=== PATIENT | male | born 1965 | race Caucasian/White ===

== ENCOUNTER 2020-10-22 08:53 | Outpatient (REF) | payer OTHER, SELFPAY ==
[2020-10-22 09:56] LABS: COVID-19 Test Negative (Negative)
== END 2020-10-22 08:54 | disposition home or self-care (01) ==
LOC: HO.EMPCOV 08:53
PROVIDERS: PCP Internal Medicine; Visit Provider Internal Medicine
DX: Z20.828 Contact with and (suspected) exposure to other viral communicable diseases (principal)
CPT/HCPCS: 87635; C9803

== ENCOUNTER 2020-10-26 10:48 | Outpatient (REF) | payer SELFPAY ==
[2020-10-26 11:47] LABS: Cholesterol 226 mg/dL
[2020-10-26 12:22] LABS: SARS COV2 IgG Negative (Negative)
== END 2020-10-26 10:49 | disposition home or self-care (01) ==
LOC: HO.LNC 10:48
PROVIDERS: Visit Provider Pathology Anatomic Pathology & Clinical Pathology
DX: Z13.89 Encounter for screening for other disorder (principal)
CPT/HCPCS: 82465; 86769

== ENCOUNTER 2020-12-05 08:19 | Outpatient (REF) | payer OTHER, SELFPAY ==
[2020-12-05 09:34] LABS: Anion Gap 13 (12-20); Blood Urea Nitrogen 15 mg/dL (9-16); Calcium 9.4 mg/dL (8.4-10.2); Carbon Dioxide 26 mmol/L (22-29); Chloride 104 mmol/L (96-108); Cholesterol 244 mg/dL; Estimated Glomerular Filt Rate > 60; Glucose Fasting 116 mg/dL (60-99); HDL Cholesterol 63 mg/dL; LDL Cholesterol Calculated 163 mg/dl; Potassium 4.5 mmol/l (3.3-5.1); Sodium 138 mmol/L (135-145); Triglycerides 94 mg/dL
[2020-12-05 10:06] LABS: PSA,Total (Free>4and<10) 8.01 ng/mL (0.00-4.00)
[2020-12-06 11:22] LABS: Free Prostate Spec Ag 0.9 ng/mL; Percent Free Prostate Spec Ag 13 % (calc) (>25)
== END 2020-12-05 08:20 | disposition home or self-care (01) ==
LOC: HO.LAB 08:19
PROVIDERS: PCP Internal Medicine; Visit Provider Internal Medicine
DX: Z00.00 Encounter for general adult medical examination without abnormal findings (principal); I10 Essential (primary) hypertension; N40.0 Benign prostatic hyperplasia without lower urinary tract symptoms; Z12.5 Encounter for screening for malignant neoplasm of prostate
CPT/HCPCS: 36415; 80048; 80061; 84153; 84154

== ENCOUNTER → 2021-01-08 11:29 | Outpatient (BNVA) | payer OTHER, SELFPAY | PROVIDERS: PCP Internal Medicine; Visit Provider Urology ==

== ENCOUNTER 2021-01-23 08:44 | Outpatient (REF) | payer OTHER, SELFPAY ==
[2021-01-23 10:11] LABS: Blood Urea Nitrogen 14 mg/dL (9-16); Estimated Glomerular Filt Rate > 60
== END 2021-01-23 08:45 | disposition home or self-care (01) ==
LOC: HO.LAB 08:44
PROVIDERS: PCP Internal Medicine; Visit Provider Urology
DX: N26.1 Atrophy of kidney (terminal) (principal); R97.20 Elevated prostate specific antigen [PSA]
CPT/HCPCS: 36415; 82565; 84520

== ENCOUNTER → 2021-01-28 08:41 | Outpatient (BNVA) | payer OTHER, SELFPAY | PROVIDERS: PCP Internal Medicine; Visit Provider Physician Assistant | DX: Z13.89 Encounter for screening for other disorder (principal) | CPT/HCPCS: 12002; 99203 ==

== ENCOUNTER → 2021-01-30 10:58 | Outpatient (BNVA) | payer OTHER, SELFPAY | PROVIDERS: PCP Internal Medicine; Visit Provider Physician Assistant | DX: Z13.89 Encounter for screening for other disorder (principal) | CPT/HCPCS: 99213 ==

== ENCOUNTER → 2021-02-04 11:02 | Outpatient (BNVA) | payer OTHER, SELFPAY | PROVIDERS: PCP Internal Medicine; Visit Provider Physician Assistant | DX: Z13.89 Encounter for screening for other disorder (principal) | CPT/HCPCS: 99213 ==

== ENCOUNTER → 2021-02-05 08:36 | Outpatient (BNVA) | payer OTHER, SELFPAY | PROVIDERS: PCP Internal Medicine; Visit Provider Urology ==

== ENCOUNTER 2021-02-10 09:34 | Emergency (ER) | payer OTHER, SELFPAY ==
[2021-02-10 09:39] VITALS: BP 140/88; PULSE 86; RESP 18; TEMP 37; O2SAT 100; BMI 24.0
--- NOTE | 2021-02-10 10:22 | ED.WOUNDLAC ---
HPI - Wound/Laceration General Chief Complaint: Wound/Laceration Stated Complaint: R THUMB LAC Time Seen by Provider: 02/10/21 10:22 History of Present Illness HPI narrative: Patient complains of right thumb laceration when he was cutting some vegetables, no numbness no weakness no tingling no other injury Related Data Home Medications Medication Instructions Recorded Confirmed diazepam 5 mg tablet 5 mg PO TID PRN 01/08/21 escitalopram oxalate 10 mg tablet 10 mg PO DAILY 01/08/21 lisinopril 10 mg tablet 10 mg PO DAILY 01/08/21 Previous Rx's Medication Instructions Recorded finasteride 5 mg tablet 5 mg PO DAILY 90 Days #90 tab 02/05/21 Allergies Allergy/AdvReac Type Severity Reaction Status Date / Time No Known Allergies Allergy Unverified 01/08/21 11:48 [No Known Allergies*] Review of Systems Review of Systems: Positive for right thumb laceration negatives are no dizziness no weakness no numbness no tingling no joint pain PMFSH Past Medical History Source: nursing notes reviewed Medical History (Updated 02/10/21 @ 10:25 by MARION Green) No known health problems Social History Social History Advance Directives: No Advance Directives Information Provided: No Physical Exam Vital Signs: Vital Signs: Last Vital Signs Temp 98.6 F 02/10/21 09:39 Pulse 86 02/10/21 09:39 Resp 18 02/10/21 09:39 BP 140/88 H 02/10/21 09:39 Pulse Ox 100 02/10/21 09:39 Body Mass Index 24.0 General appearance comfortable relax cooperative no acute distress Neck is supple Respiratory no distress Right thumb distal phalanx has a 1 cm flap laceration that is not bleeding, all tendon function is normal sensation motor and vascular or all intact distal Course Course Course Narrative: Right thumb laceration flap lack 1 cm is cleansed and irrigated with normal saline and then closed with Steri-Strips, bleeding controlled, no complications Discharge Plan Discharge Clinical Impression: Laceration of right thumb Qualifiers: Encounter type: initial encounter Damage to nail status: without damage Foreign body presence: without foreign body Qualified Code(s): S61.011A - Laceration without foreign body of right thumb without damage to nail, initial encounter Patient Disposition: Home, Self-Care Additional Instructions: Removed tape in 5-7 days Return any time any time for redness swelling discharge from wound, any sign of infection Prescriptions: No Action escitalopram oxalate 10 mg tablet 10 mg PO DAILY RF: 0 diazepam 5 mg tablet 5 mg PO TID PRN (Reason: muscle spasm) RF: 0 lisinopril 10 mg tablet 10 mg PO DAILY RF: 0 finasteride 5 mg tablet 5 mg PO DAILY 90 Days Qty: 90 RF: 1
== END 2021-02-10 10:36 | disposition home or self-care (01) ==
PROVIDERS: Emergency Provider Emergency Medicine; PCP General Practice
DX: S61.011A Laceration without foreign body of right thumb without damage to nail, initial encounter (principal); W26.0XXA Contact with knife, initial encounter; Y93.G1 Activity, food preparation and clean up; Y92.010 Kitchen of single-family (private) house as the place of occurrence of the external cause; Y99.9 Unspecified external cause status
CPT/HCPCS: 99283

== ENCOUNTER → 2021-05-08 11:02 | Outpatient (REF) | payer OTHER, SELFPAY ==
--- NOTE | 2021-05-08 11:09 | CA_ITS ---
Acquisition Time: 2021-05-08 11:20:42 Total Exercise Time: 00:11:01 Test Indications: SYNCOPE Medications: SEE CHART Protocol: ELIEZER Max HR: 162 BPM 98% of Pred: 164 BPM Max BP: 192/070 mmHG Max Work Load: 13.4 METS Exercise stress test with exercise 11 min 1 sec of Eliezer protocol, without anginal symptoms, with isolated PACs, with normotensive response to exercise, without EKG changes meeting criteria for ischemia. In recovery there was asymptomatic borderline horizontal ST depression inferiorly, V5-V6 noted. Echo images obtained by [email or web address] at rest and immediately post peak exercise. Definity contrast used. Note: when transferring from treadmill to stretcher at end of peak exercise a cardiac lead was accidently disconnected, then reconnected by 34 sec of recovery. Test reviewed with Dr Thompson Referred By: Daniel Umanzor Overread By: BIJAN BERGER
== END ==
LOC: HO.CARD 11:02
PROVIDERS: PCP Internal Medicine; Visit Provider Internal Medicine
DX: R55 Syncope and collapse (principal); R07.89 Other chest pain
CPT/HCPCS: 93350; Q9957

== ENCOUNTER 2021-06-06 06:07 | Outpatient (REF) | payer OTHER, SELFPAY ==
[2021-06-06 07:58] LABS: PSA,Total (Free>4and<10) 7.65 ng/mL (0.00-4.00)
[2021-06-07 12:01] LABS: Free Prostate Spec Ag 0.5 ng/mL; Percent Free Prostate Spec Ag 7 % (calc) (>25)
== END 2021-06-06 06:08 | disposition home or self-care (01) ==
LOC: HO.LAB 06:07
PROVIDERS: PCP Internal Medicine; Visit Provider Urology
DX: Z12.5 Encounter for screening for malignant neoplasm of prostate (principal); N13.8 Other obstructive and reflux uropathy; N40.1 Benign prostatic hyperplasia with lower urinary tract symptoms
CPT/HCPCS: 36415; 84153; 84154

== ENCOUNTER → 2021-06-07 08:43 | Outpatient (BNVA) | payer OTHER, SELFPAY | PROVIDERS: PCP Internal Medicine; Visit Provider Urology | DX: N40.1 Benign prostatic hyperplasia with lower urinary tract symptoms (principal); N13.8 Other obstructive and reflux uropathy; R97.20 Elevated prostate specific antigen [PSA] | CPT/HCPCS: 51798; 99212 ==

== ENCOUNTER 2021-12-10 08:34 | Outpatient (REF) | payer OTHER, SELFPAY ==
[2021-12-10 09:53] LABS: PSA,Total (Free>4and<10) 7.93 ng/mL (0.00-4.00)
[2021-12-11 13:16] LABS: Free Prostate Spec Ag 0.6 ng/mL; Percent Free Prostate Spec Ag 9 % (calc) (>25); Prostate Specific Ag Total 6.9 ng/mL (< OR = 4.0)
== END 2021-12-10 08:35 | disposition home or self-care (01) ==
LOC: HO.LAB 08:34
PROVIDERS: Visit Provider Urology
DX: N40.1 Benign prostatic hyperplasia with lower urinary tract symptoms (principal); N13.8 Other obstructive and reflux uropathy; R97.20 Elevated prostate specific antigen [PSA]; Z12.5 Encounter for screening for malignant neoplasm of prostate
CPT/HCPCS: 36415; 84153; 84154

== ENCOUNTER → 2021-12-13 08:47 | Outpatient (BNVA) | payer OTHER, SELFPAY | PROVIDERS: PCP Internal Medicine; Visit Provider Urology ==

== ENCOUNTER 2022-06-16 07:16 | Outpatient (REF) | payer BC, SELFPAY ==
[2022-06-16 08:47] LABS: PSA,Total (Free>4and<10) 11.06 ng/mL (0.00-4.00)
== END 2022-06-16 07:17 | disposition home or self-care (01) ==
LOC: HO.LAB 07:16
PROVIDERS: PCP Internal Medicine; Visit Provider Urology
DX: Z12.5 Encounter for screening for malignant neoplasm of prostate (principal); N13.8 Other obstructive and reflux uropathy; N40.1 Benign prostatic hyperplasia with lower urinary tract symptoms; R97.20 Elevated prostate specific antigen [PSA]
CPT/HCPCS: 36415; 84153

== ENCOUNTER 2022-06-18 07:14 | Outpatient (REF) | payer BC, SELFPAY ==
[2022-06-18 08:01] LABS: Hematocrit 44.9 % (42.0-52.0); Hemoglobin 14.5 g/dl (14.0-18.0); Mean Corpuscular HGB Conc 32.3 g/dl (31.0-36.0); Mean Corpuscular Hemoglobin 28.3 pg (27.0-33.0); Mean Corpuscular Volume 87.7 fL (80.0-98.0); Mean Platelet Volume 8.8 fL (9.4-12.4); Platelet Count 385 X10*3/uL (160-400); Red Blood Count 5.12 X10*6/uL (4.60-5.80); Red Cell Distribution Width 16.9 % (11.0-16.0); White Blood Count 8.8 X10*3/uL (4.8-10.8)
[2022-06-18 08:50] LABS: Alanine Aminotransferase 14 U/L (0-40); Albumin Level 4.5 g/dL (3.5-5.0); Alkaline Phosphatase 90 U/L (39-117); Anion Gap 13 (12-20); Aspartate Amino Transferase 17 U/L (5-37); Bilirubin Total 0.3 mg/dL (0.0-1.0); Blood Urea Nitrogen 13 mg/dL (9-16); Calcium 9.3 mg/dL (8.4-10.2); Carbon Dioxide 25 mmol/L (22-29); Chloride 104 mmol/L (96-108); Cholesterol 260 mg/dL; Estimated Glomerular Filt Rate > 60; Glucose Random 119 mg/dL (60-115); HDL Cholesterol 62 mg/dL; LDL Cholesterol Calculated 176 mg/dl; Potassium 4.4 mmol/L (3.3-5.1); Sodium 138 mmol/L (135-145); Total Protein 7.5 g/dL (6.5-8.0); Triglycerides 111 mg/dL
[2022-06-18 10:45] LABS: Appearance Urine HAZY; Color Urine YELLOW; Glucose Urine UA NEG (NEG); Leukocyte Esterase Urine NEG (NEG); Nitrite Urine NEG (NEG); PH 6.5 (5.0-8.0); Specific Gravity - Urine 1.025 (1.005-1.025); Urine Blood 2+ (NEG); Urine Ketones NEG (NEG); Urine Protein NEG (NEG-TRACE)
[2022-06-18 11:03] LABS: Mucus Urine 2+ /LPF; Squamous Epithelial Cell Urine TRACE /LPF
[2022-06-18 11:04] LABS: WBC Urine 0 /HPF (0-4)
== END 2022-06-18 07:15 | disposition home or self-care (01) ==
LOC: HO.LAB 07:14
PROVIDERS: PCP Internal Medicine; Visit Provider Internal Medicine
DX: Z00.00 Encounter for general adult medical examination without abnormal findings (principal); I10 Essential (primary) hypertension
CPT/HCPCS: 36415; 80053; 80061; 81001; 85027

== ENCOUNTER 2022-10-28 07:37 | Outpatient (REF) | payer BC, SELFPAY ==
[2022-10-28 07:55] VITALS: BP 167/87; PULSE 67; RESP 16; TEMP 36.9; O2SAT 100
[2022-10-28 07:57] VITALS: BMI 22.8
--- NOTE | 2022-10-28 08:29 | W.PM.OPN ---
Operative Note Operative Note Date of Service: 10/28/22 Narrative: Preoperative diagnosis: Elevated PSA Postoperative diagnosis: Elevated PSA Procedure: 1. transrectal ultrasound measurement of prostate 2. transrectal ultrasound-guided pudendal nerve block 3. transrectal ultrasound-guided prostate biopsy 12 core Surgeon: Dr. Fredrick Daly Anesthetic: Local Indications for procedure: Elevated PSA 11.1 - prior negative biopsy Procedure: After informed consent was verified, the patient was brought into the procedure area and lay left-hand side down on the table. Patient identity confirmed. Perioperative antibiotics confirmed. Safety pause time out performed. SAMUEL performed to dilate rectal sphincter Iodine 10cc with Gel was placed per rectum Ultrasound probe was placed per rectum The prostate was measured in 3 dimensions Total volume equals 30 gm right base small cystic structures were noted left medial base calcifications were noted at the surgical margin The prostate was otherwise homogeneous in nature An ultrasound-guided pudendal nerve block was performed using 10 cc of 1% lidocaine. 8 cc was placed at the base and 2 cc of the apex. A 12 core biopsy was performed with 6 cores each side. Two cores were taken at the apex, mid and base. Cores were spaced between lateral and medial. He tolerated the procedure well. Was able to ambulate to bathroom after 5 minutes. Printed instructions regarding antibiotic use and common side effects such as low-grade temperature, potential infection and bleeding were given Pathology: 12 core prostate biopsy.
[2022-10-28 08:30] VITALS: BP 145/92; PULSE 65; RESP 16; O2SAT 99
== END 2022-10-28 07:38 | disposition home or self-care (01) ==
LOC: HO.MS 07:37
PROVIDERS: PCP Internal Medicine; Visit Provider Urology
PROC: (CPT 55700; principal; 2022-10-28 08:00)
DX: N42.32 Atypical small acinar proliferation of prostate (principal); R97.20 Elevated prostate specific antigen [PSA]
CPT/HCPCS: 55700; 76942; 88305; 88344

== ENCOUNTER 2023-05-18 08:05 | Outpatient (REF) | payer BC, SELFPAY ==
[2023-05-18 09:19] LABS: Appearance Urine Clear; Color Urine Yellow; Glucose Urine UA Negative (Negative); Leukocyte Esterase Urine Negative (Negative); Nitrite Urine Negative (Negative); UMIC TRIGGER UA YES; Urine Blood Small (1+) (Negative); Urine Ketones Negative (Negative); Urine Protein Negative (Neg-Trace)
[2023-05-18 09:26] LABS: Bacteria Urine None Seen (None Seen); Hyaline Casts Urine 0-2 /LPF (0-2); RBC Urine >20 /HPF (0-2); Squamous Epithelial Cell Urine 0-2 /HPF (0-2); WBC Urine 0-5 /HPF (0-5)
[2023-05-18 10:05] LABS: Cholesterol 230 mg/dL; HDL Cholesterol 60 mg/dL; LDL Cholesterol Calculated 157 mg/dl; Triglycerides 68 mg/dL
[2023-05-18 10:26] LABS: Prostate Specific Antigen 13.41 ng/mL (<0.05-4.0)
== END 2023-05-18 08:06 | disposition home or self-care (01) ==
LOC: HO.LAB 08:05
PROVIDERS: Internal Medicine; PCP Urology; Visit Provider Urology
DX: Z12.5 Encounter for screening for malignant neoplasm of prostate (principal); R97.20 Elevated prostate specific antigen [PSA]; E78.5 Hyperlipidemia, unspecified; R31.21 Asymptomatic microscopic hematuria
CPT/HCPCS: 36415; 80061; 81001; 84153

== ENCOUNTER 2023-05-20 11:44 | Outpatient (AMB) | payer BC, SELFPAY ==
--- NOTE | 2023-05-20 11:56 | A.OFFVIS_ITS ---
Intake Intake Visit Reasons: 6M PSA(set) Intake Note: * Patient presents today for a 6mo follow-up with PSA results * Meds- Finasteride * Allergies to Antibiotic- None * Blood Thinner- None Matchbook Assembler Required: No Accompanied by: Self / Same As Patient Allergies No Known Allergies [No Known Allergies*] Allergy (Verified 05/20/23 11:56) HPI HPI Comments History of Present Illness Details Rishi is a very pleasant male. He is a patient of Dr. Eliazar gibbs. He is seen for the following urologic conditions - elevated PSA - BPH PSA remains elevated 6 month follow-up Elevated PSA Prior PSA 12/12 5.4, 06/11 7.2, 12/13 8.0, 06/12 7.6, 12/14 6.9 9%, 06/13 11, 05/15 13 Prior prostate biopsy May 2020 prostate biopsy negative - BPH with chronic inflammation Repeat biopsy - 11/13 BPH with small area TUCKER Imaging - 01/13 MRI no suspicious lesions 30 g prostate PFSH Medical History Anemia Colon cancer screening Hemorrhoids Internal and external bleeding hemorrhoids No known health problems Palmar nodule Surgical History History of surgery Review of Systems Const Denies chills and Denies fever(s) Card Reports no additional complaints and Denies syncope Resp Denies cough GI Denies abdominal pain and Denies heartburn Reports as per HPI and Denies change in libido Neuro Denies syncope Psych Denies change in libido Endo Denies change in libido Physical Exam Const General: cooperative, healthy appearing, comfortable and no acute distress Orientation/consciousness: patient oriented x3 HEENT Face and sinus: Yes normal facial exam Mouth: moist mucous membranes Neck Neck: Yes normal visual inspection, Yes full ROM and Yes trachea midline Chest Chest palpation & inspection: normal inspection of the chest Resp Effort & Inspection: normal respiratory effort, able to speak in complete sentences and no respiratory distress GI Inspection: Yes normal to inspection Back/Spine/Pelvis Cervical Spine: normal cervical lordosis Thoracic/Lumbar Spine: thoracic and lumbar spine normal to inspection Skin General skin exam: no rashes or lesions noted Neuro General: patient oriented x3, gait normal, tone normal and moves all extremities Extrem General: Yes normal to inspection and Yes capillary refill normal Assessment & Plan Assessment & Plan (1) BPH w urinary obs/LUTS: Code(s): N40.1 - Benign prostatic hyperplasia with lower urinary tract symptoms; N13.8 - Other obstructive and reflux uropathy (2) Elevated PSA: Comment: May 2020 Neg Biopsy Code(s): R97.20 - Elevated prostate specific antigen [PSA] Plan Six month follow-up Orders: Orders Prostate Specific Antigen 6 Months R97.20 - Elevated prostate specific antigen [PSA] Patient Instructions: Imaging studies, laboratory and physical exam results were discussed and reviewed in detail. No major barriers to patient understanding were identified. An opportunity to ask questions regarding the treatment plan was provided. All questions were answered. The patient expressed understanding and agreement with the above treatment plan. The patient is aware they should contact our office by phone for worsening of their current condition or the appearance of new urologic symptoms. Compliance is encouraged with any medications and followup testing that is ordered. It is a privilege to participate in the urologic care of your patient. If you have any questions or concerns regarding treatment for the above conditions, or other urologic issues, please do not hesitate to contact me. The office telephone contact is [phone]. This note is constructed using voice recognition software. While every effort has been made to ensure accuracy mirror polisher errors may have been included. Yours sincerely, Dr Fredrick Daly MD, [facility] - Urology Providers of Expert, Compassionate Care for the Genitourinary System Coding Level of Care Code Est Pt Level 3 (29172) Diagnoses BPH w urinary obs/LUTS N40.1; N13.8 Elevated PSA R97.20
== END 2023-05-20 12:18 | disposition home or self-care (01) ==
PROVIDERS: PCP Urology; Visit Provider Urology
DX: N40.1 Benign prostatic hyperplasia with lower urinary tract symptoms (principal); N13.8 Other obstructive and reflux uropathy; R97.20 Elevated prostate specific antigen [PSA]
CPT/HCPCS: 99213

== ENCOUNTER → 2023-05-20 11:44 | Outpatient (BNVA) | payer BC, SELFPAY | PROVIDERS: PCP Urology; Visit Provider Urology ==

== ENCOUNTER 2023-11-12 06:47 | Outpatient (REF) | payer BC, SELFPAY ==
[2023-11-12 08:09] LABS: Prostate Specific Antigen 12.11 ng/mL (<0.05-4.0)
== END 2023-11-12 06:48 | disposition home or self-care (01) ==
LOC: HO.LAB 06:47
PROVIDERS: PCP Internal Medicine; Visit Provider Urology
DX: Z12.5 Encounter for screening for malignant neoplasm of prostate (principal); R97.20 Elevated prostate specific antigen [PSA]
CPT/HCPCS: 36415; 84153

== ENCOUNTER → 2023-11-17 08:44 | Outpatient (AMB) | payer BC, SELFPAY ==
--- NOTE | 2023-11-17 08:44 | A.OFFVIS_ITS ---
Intake Intake Visit Reasons: 6m/PSA(set) Intake Note: Patient presents today for 6mo follow-up tele visit with PSA results (psa 12.11) Urology Meds- Finasteride Allergies to Antibiotic- None Blood Thinner- None Eligibility Counselor Required: No Accompanied by: Self / Same As Patient Allergies No Known Allergies [No Known Allergies*] Allergy (Verified 11/17/23 09:09) Medication List - Last Reconciled 11/17/23 by XAVI Coe diazepam 5 mg PO TID PRN escitalopram oxalate 5 mg PO DAILY finasteride 5 mg PO DAILY 90 days hydrocodone-acetaminophen 5-325 mg 1 tab PO Q6H PRN metoprolol succinate ER 25 mg PO DAILY HPI HPI Comments History of Present Illness Details Rishi is a very pleasant male patient of Dr. Meng. He has a PMH of hemmoroids, anemia, and eevated PSA. He is being follow-up on today via telehealth for his elevated PSA and BPH. In discussion with the patient today reports to be doing and feeling well. He reports compliance with 5 mg of finasteride daily. Recent PSA results reviewed with the patient today as noted and trended below. When asked he denies any bothersome urinary issues or concerns. He denies urinary urgency, urinary frequency, incontinence, nocturia, hematuria, dysuria, foul smelling urine, changes to urinary stream, flank pain, fever, and or chills. He is happy with his current voiding parameters. Discussed at length potential causes for elevated PSA. Unable to perform SAMUEL as this is a telephone encounter however discussed next follow-up in office to further assess. Discussed obtaining MRI of the prostate for further assessment evaluation verses repeat prostate biopsy versus surveillance monitoring. Risks and benefits of these interventions were discussed at length. All questions were answered Elevated PSA Prior PSA 12/12 5.4, 06/11 7.2, 12/13 8.0, 06/12 7.6, 12/14 6.9 9%, 06/13 11, 05/15 13, 11/14 12.1 Prior prostate biopsy May 2020 prostate biopsy negative - BPH with chronic inflammation Repeat biopsy - 11/13 BPH with small area TUCKER Imaging - 01/13 MRI no suspicious lesions 30 g prostate PFSH Medical History Hemorrhoids Anemia Palmar nodule Colon cancer screening Internal and external bleeding hemorrhoids No known health problems Surgical History History of surgery Review of Systems Const All systems reviewed & are unremarkable except as noted in HPI and below Physical Exam Const General: cooperative Orientation/consciousness: patient oriented x3 Resp Effort & Inspection: able to speak in complete sentences Neuro General: patient oriented x3 Psych Speech and movement: Clear speech present Attitude: cooperative Thought process: Normal thought process present Thought content: Normal thought content present Insight: Good insight present (Psych) Judgement: Good judgement present (Psych) Assessment & Plan Assessment & Plan (1) Elevated PSA: Comment: May 2020 Neg Biopsy Code(s): R97.20 - Elevated prostate specific antigen [PSA] Plan Recent PSA results reviewed with the patient today; as noted above. Continue finasteride 5 mg daily as discussed and prescribed. Discussed at length potential causes for elevated PSA. Discussed surveillance monitoring verses repeat prostate biopsy verses MRI of the prostate for further assessment evaluation; risks and benefits of these interventions were discussed at length. Unable to preform SAMUEL; televisit. Patient currently denies any bothersome urinary issues or concerns. He reports be happy with current voiding parameters. Will obtain MRI of the prostate for further assessment evaluation Follow-up in 4-6 weeks with imaging to be completed prior; or sooner with any issues, concerns, and or questions. Orders: Orders MR pelvis wo/w con Today R97.20 - Elevated prostate specific antigen [PSA] Patient Instructions: The patient had an opportunity to ask questions regarding the treatment plan. All questions were answered. Physical exam, labs, and imaging were discussed and reviewed in detail. As well as risks, benefits, and discussion of treatment choices. No major barriers to understanding were identified. The patient expressed understanding and agreement with the above treatment plan. The patient was made aware they should contact our office by phone for worsening of their current condition, the appearance of new symptoms, or with any questions or concerns. Compliance is encouraged with any medications and follow up testing that is ordered. It is a privilege to be allowed the opportunity to participate in? your urological care.? Again, if you have any questions or concerns If you have any questions or concerns please do not hesitate to contact me. The office is [phone]. This note is constructed using voice recognition software. While every effort has been made to ensure accuracy residential carpet installer errors may have been included. Yours sincerely, DONNA Coe- Telehealth Telehealth Location of provider rendering services: practice address Location of patient: address on file Patient Identification confirmed using: Name, : Yes Telehealth method: voice only Patient verbally consented to treatment: Yes Patient verbally consented to billing insurance company: Yes Patient informed of any privacy concerns related to visit: Yes Minutes spent on Phone/Video with Pt.: 15 Coding Level of Care Code Tele Est Pt Level 3 (98045) Diagnoses Elevated PSA R97.20
== END ==
PROVIDERS: PCP Internal Medicine; Visit Provider Nurse Practitioner Family
DX: R97.20 Elevated prostate specific antigen [PSA] (principal)
CPT/HCPCS: 99442

== ENCOUNTER → 2023-11-17 08:44 | Outpatient (BNVA) | payer BC, SELFPAY | PROVIDERS: PCP Internal Medicine; Visit Provider Nurse Practitioner Family ==

== ENCOUNTER 2024-01-06 08:41 | Outpatient (AMB) | payer BC, SELFPAY ==
--- NOTE | 2024-01-06 08:42 | MHC.OFFVIS ---
Intake Intake Visit Reasons: 6w/MRI( pending 01/01/24) Intake Note: Patient presents today for follow-up tele visit for Elevated PSA and MRI results Imagin01/01/24 Urology Medications: Finasteride Blood Thinner:None Patient stated he uses [facility] because of insurance purposes. Shift Superintendent Required: No Accompanied by: Self / Same As Patient Allergies No Known Allergies [No Known Allergies*] Allergy (Verified 01/06/24 09:08) Medication List - Last Reconciled 01/06/24 by DONNA Coe-STEPHANIE diazepam 5 mg PO TID PRN escitalopram oxalate 5 mg PO DAILY finasteride 5 mg PO DAILY 90 days hydrocodone-acetaminophen 5-325 mg 1 tab PO Q6H PRN metoprolol succinate ER 25 mg PO DAILY HPI HPI Comments History of Present Illness Details Rishi is a very pleasant 58 year old male patient of Dr. Meng. He has a PMH of hemmoroids, anemia, and eevated PSA. He is being follow-up on today via video telehealth for his elevated PSA and BPH. Of note, patient was seen approximately 2 months ago at which time an MRI of the prostate was ordered for further assessment evaluation. These results were reviewed with the patient today. Indeterminate lesion in the anterior transitional zone spanning the mid gland to base. This demonstrates marked DWI and ADC signal abnormality and demonstrates some hypervascularity (PI-RADS 3). In discussion with the patient today reports to be doing and feeling well. He reports compliance with 5 mg of finasteride daily.. Previous PSA results reviewed and trended below. When asked he denies any bothersome urinary issues or concerns. He denies urinary urgency, urinary frequency, incontinence, nocturia, hematuria, dysuria, foul smelling urine, changes to urinary stream, flank pain, fever, and or chills. He is happy with his current voiding parameters. Discussed at length potential causes for elevated PSA. Unable to perform SAMUEL as this is a telephone encounter however discussed next follow-up in office to further assess. Discussed at length findings on MRI. Discussed risks and benefits of surveillance monitoring verses prostate fusion biopsy. This was discussed at length. All questions were answered. Elevated PSA Prior PSA 12/12 5.4, 06/11 7.2, 12/13 8.0, 06/12 7.6, 1/22 6.9 9%, 06/13 11, 05/15 13, 11/14 12.1 Prior prostate biopsy May 2020 prostate biopsy negative - BPH with chronic inflammation Repeat biopsy - 11/13 BPH with small area TUCKER Imaging - 01/13 MRI no suspicious lesions 30 g prostate Imaging- 01/16 MRI indeterminate lesion in the anterior transition zone spanning the mid gland to base; 28cc prostate. COUNT INCLUDES [facility] Medical History Hemorrhoids Anemia Palmar nodule Colon cancer screening Internal and external bleeding hemorrhoids No known health problems Surgical History History of surgery Review of Systems Const All systems reviewed & are unremarkable except as noted in HPI and below Physical Exam Const General: cooperative, healthy appearing, comfortable, no acute distress, well developed, alert and awake Orientation/consciousness: patient oriented x3 Resp Effort & Inspection: normal respiratory effort and able to speak in complete sentences Neuro General: patient oriented x3 Psych Appearance: grossly normal and well kempt Speech and movement: Clear speech present Affect: normal affect Attitude: cooperative Thought process: Normal thought process present Thought content: Normal thought content present Insight: Fair insight present (Psych) Judgement: Fair judgement present (Psych) Assessment & Plan Assessment & Plan (1) Elevated PSA: Comment: May 2020 Neg Biopsy Code(s): R97.20 - Elevated prostate specific antigen [PSA] Plan: Risks, benefits and alternatives to therapy were discussed. These include but are not limited to infection, bleeding, damage to local organs and tissues, need for further interventions. ? Anesthetic risks regarding cardiac arrhythmia, blood clots, and potential mortality were discussed. The patient understands the typical recovery time and the outpatient nature of the procedure. After consideration of these risks the patient gives full informed consent and they wish to move ahead with the procedure. Plan Recent MRI results reviewed with the patient today. Discussed at length potential causes of elevated PSA. Discussed previous PSA results with the patient today; as noted above. He currently denies any bothersome urinary issues or concerns. He is happy with his current voiding parameters. Continue finasteride as discussed and prescribed. Discussed at length further treatment options with surveillance monitoring and or prostate fusion biopsy; this was discussed at length; risks and benefits of these interventions were discussed All questions were answered. Will schedule for prostate fusion biopsy with Dr. Daly as discussed Patient Instructions: The patient had an opportunity to ask questions regarding the treatment plan. All questions were answered. Physical exam, labs, and imaging were discussed and reviewed in detail. As well as risks, benefits, and discussion of treatment choices. No major barriers to understanding were identified. The patient expressed understanding and agreement with the above treatment plan. The patient was made aware they should contact our office by phone for worsening of their current condition, the appearance of new symptoms, or with any questions or concerns. Compliance is encouraged with any medications and follow up testing that is ordered. It is a privilege to be allowed the opportunity to participate in? your urological care.? Again, if you have any questions or concerns If you have any questions or concerns please do not hesitate to contact me. The office is [phone]. This note is constructed using voice recognition software. While every effort has been made to ensure accuracy scarf and anneal operator errors may have been included. Yours sincerely, [facility] Telehealth Telehealth Location of provider rendering services: practice address Location of patient: address on file Patient Identification confirmed using: Name, : Yes Telehealth method: video Patient verbally consented to treatment: Yes Patient verbally consented to billing insurance company: Yes Patient informed of any privacy concerns related to visit: Yes Minutes spent on Phone/Video with Pt.: 25 Coding Level of Care Code Tele Est Pt Level 4 (57390) Diagnoses Elevated PSA R97.20
== END 2024-01-06 09:22 | disposition home or self-care (01) ==
LOC: HO.HUSH 08:41
PROVIDERS: PCP Internal Medicine; Visit Provider Nurse Practitioner Family
DX: R97.20 Elevated prostate specific antigen [PSA] (principal)
CPT/HCPCS: 99214

== ENCOUNTER → 2024-01-06 08:41 | Outpatient (BNVA) | payer BC, SELFPAY | PROVIDERS: PCP Internal Medicine; Visit Provider Nurse Practitioner Family ==

== ENCOUNTER 2024-02-08 08:14 | Day surgery (SDC) | payer BC, SELFPAY ==
[2024-02-08] VITALS (7 sets, daily range): BP systolic 112–147; BP diastolic 66–92; PULSE 50–57; RESP 12–18; TEMP 36.1–36.6; O2SAT 96–97; BMI 21.4
[2024-02-08] MEDS: levoFLOXacin 500 MG TABLET PO (09:08)
[2024-02-08] MEDS: Lactated Ringers 1,000 ML 50 ML IVCONT (09:09)
--- NOTE | 2024-02-08 09:24 | HO.ANESPROP2 ---
HPI - Anesthesia Eval Consult details Narrative: 58 yo male patient for Targeted Prostate Needle Biopsy PMFSH Active Problems Active Problems: All Active Problems (Updated 02/08/24 @ 09:25 by Ju Kinsey MD) Elevated PSA (Acute) BPH w urinary obs/LUTS (Acute) Smoker. Last cigarette this morning Past Medical History Medical History (Updated 02/08/24 @ 09:35 by Ju Kinsey MD) Hemorrhoids Anemia Palmar nodule Colon cancer screening Internal and external bleeding hemorrhoids Family History Family history of problems with anesthesia: No Surgical History Surgical History History of surgery History of Problems with Anesthesia: No Social History Social History Patient Tobacco Use Status: Current everyday Tobacco user Cigarettes Per Day: 0.5 Use of substances other than those prescribed or required for medical reasons: No Are you DNR?: No Advance Directives: No Advance Directives Information Provided: Yes Meds Allergies Allergy/AdvReac Type Severity Reaction Status Date / Time No Known Allergies Allergy Verified 01/06/24 09:08 [No Known Allergies*] Active Medications: Current Medications Lactated Ringer's (Lr) 1,000 mls @ 50 mls/hr IVCONT .Q20H CRYSTAL Last Admin: 02/08/24 09:09 Dose: 50 mls/hr Home Medications Medication Instructions Recorded Confirmed Last Taken Type diazepam 5 mg tablet 5 mg PO TID PRN muscle spasm 01/08/21 02/08/24 Unknown History escitalopram oxalate 5 mg tablet 5 mg PO DAILY 12/13/21 02/08/24 02/08/24 History metoprolol succinate 25 mg 25 mg PO DAILY 12/13/21 02/08/24 02/08/24 History tablet,extended release 24 hr hydrocodone 5 mg-acetaminophen 325 1 tab PO Q6H PRN Pain 11/17/23 02/08/24 Unknown History mg tablet Exam Height,Weight and Vital Signs: Height 5 ft 9 in Weight 65.771 kg Last Vital Signs Temp 97.9 F 02/08/24 09:06 Pulse 57 02/08/24 09:06 Resp 18 02/08/24 09:06 BP 147/92 H 02/08/24 09:06 Pulse Ox 97 02/08/24 09:06 O2 Del Method Room Air 02/08/24 09:06 Airway Mallampati Class: II TM Dist: >3cm Neck ROM: Full Loose/Missing/Broken Teeth: No (Denies broken, loose, missing teeth) Heart: RRR Lungs: CTAB Assessment and Plan Assessment Anesthesia Assessment: Anesthesia Plan Discussed and Chart Reviewed Final Anesthetic Review Family History of Problems with Anesthesia: No History of Problems with Anesthesia: No NPO: Yes ASA Class: II Final Preanesthetic Review: No Changes in Pt Med Stat, Meds/Allgs Chart Reviewed, Consent Obtained/Reviewed and Anes Risks/Benef Reviewed Patient Risk: Low Procedure Risk: Low Assessment/Block/Sedation in SS: Assess/Block/Sedation-SS Anesthetic Plan Anesthetic Plan: GA Disposition: Standard PACU
--- NOTE | 2024-02-08 09:33 | P.HPSUR_ITS ---
Pre-Procedural Eval Section A - 24 Hr Update-Section A only Date of Service: 02/08/24 The patient is an INPATIENT: No Changes since office visit: No Cold of Flu in the past 2 weeks, No New Medical Problems, No Changes in Medication and No Patient answered all questions The patient has been examined within 24 hours of the surgical procedure. The History & Physical has been completed within 30 days and I have reviewed it.: Yes Section B - Complete if H&P > 30 days Chief Complaint: Elevated prostate specific antigen [PSA] Details of Present Illness: MRI ultrasound fusion prostate biopsy Relevant Family History (Specify if Yes): No Relevant Social History: None Present Medications: see Short Stay Collaborative assessment Medical History: No relevant PMH History of Previous Operations: Relevant previous surgery/procedure and date(s) Allergies: Allergies Allergy/AdvReac Type Severity Reaction Status Date / Time No Known Allergies Allergy Verified 01/06/24 09:08 [No Known Allergies*] Review of Systems Sugical H&P ROS: Negative: Constitution, Cardiovascular, Respiratory, Neurological, Psychiatric, Hem-Onc, Allergic/Immunologic, Gastrointestinal, G enitourinary, Musculoskeletal, Integumentary, Endocrine and Eyes/Ears/Nose/Throat Exam Surgical H&P Exam: Normal: HEENT, Normal: Heart, Normal: Lungs, Normal: Extremities, Normal: Abdomen, Normal: Skin and Normal: Neurological Plan Diagnosis/Plan: Unchanged I have reviewed the history and physical and performed a pertinent physical examination on my patient. No changes have occurred unless specified. Time Spent With Patient Time: Total time managing care of this patient today ____ minutes.
--- NOTE | 2024-02-08 09:36 | W.PM.OPN ---
Operative Note Operative Note Date of Service: 02/08/24 Narrative: 01/16 MRI PI-RADS 3 lesion in the anterior transition zone spanning the mid gland to base; 28cc prostate PSA 7 F 9% Preoperative diagnosis: Elevated PSA Postoperative diagnosis: Elevated PSA Procedure: 1. transrectal ultrasound-guided pudendal nerve block 2. MRI-US fusion image registration performed 3. transperineal ultrasound-guided prostate biopsy 14 core including targets Surgeon: Dr. Fredrick Daly Anesthetic: Sedation plus local Indications for procedure: Elevated PSA PSA 12.2 Procedure: After informed consent was verified, the patient was brought into the procedure area. Patient identity confirmed. Perioperative antibiotics confirmed. Safety pause time out performed. Anesthesia performed per protocol. Scrotum taped out of operative area. Iodine prep used. Perineal injection of local anesthetic. Digital guided prostate pudendal nerve block performed with 10 cc of 1% lidocaine. 5cc each side. Combination 10cc iodine with 50cc gel was mixed and placed in the rectum. Ultrasound probe was placed per rectum. Ultrasound probe stabilized on a prostate stepper with attached grid. Targetting software and hardware platform used for US image acquisition, US 3D model creation and MRI-US fusion image overlay. Ultrasound placement was made with external grid calibration for height and prostate diameter in both the transverse and longitudinal planes. Grid A-C covering right prostate and c-F covering left prostate. Numbers 1.0-2.5 covering posterior prostate and 2.5-4.0 covering anterior prostate. Once grid calibration was confirmed prostate ultrasound data acquisition was performed in the transverse fashion. The US images were registered to create model boundaries. A three dimensional ultrasound model was created using modeling software. The model was reviewed against acquired US images. The planned needle targeting, based on prior acquisition of MRI imaging, was overlaid on the ultrasound images and targets confirmed through ultrasound review. Adjustments were then made between real time and projected model targeting locations. Based on pre-planning evaluation 14 targets had been identified. These included 2 targets of the PI-RADS 3 prostate anterior mid gland identified lesion/s. He tolerated the procedure well. Was transferred to stable condition in the PACU. Printed instructions regarding antibiotic use and common side effects such as low-grade temperature, potential infection and bleeding were given Pathology: 14 core prostate biopsy CPT 28926 Modifier 22 for complexity of procedure execution (Perineal prostate biopsy) CPT 01810 US/MRI target fusion and manipulation in realtime
== END 2024-02-08 11:43 | disposition home or self-care (01) ==
PROVIDERS: PCP Internal Medicine; Visit Provider Urology
PROC: (CPT 55700; principal; 2024-02-08 09:50)
DX: C61 Malignant neoplasm of prostate (principal); N40.0 Benign prostatic hyperplasia without lower urinary tract symptoms; R97.20 Elevated prostate specific antigen [PSA]; D64.9 Anemia, unspecified; Z79.899 Other long term (current) drug therapy
CPT/HCPCS: 55706; 88305; 88344; C2618; J2704; J3010

== ENCOUNTER → 2024-02-08 08:14 | Outpatient (BNV) | payer BC, SELFPAY | PROVIDERS: PCP Internal Medicine; Visit Provider Urology | DX: R97.20 Elevated prostate specific antigen [PSA] (principal) | CPT/HCPCS: 55700; 76942 ==

== ENCOUNTER 2024-02-25 09:39 | Outpatient (AMB) | payer BC, SELFPAY ==
--- NOTE | 2024-02-25 10:04 | A.OFFVIS_ITS ---
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 He has a patient of Dr. Meng. He is seen for the following urologic conditions - elevated PSA - BPH - prostate cancer Here for discussion of biopsy results with . 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 Plan for [employer] genetic evaluation to help determine suitability for surveillance as initial management Prostate Cancer - low volume grade group 2 02/13 PSA 12 Volume 30cc pT1c Histologic type: Adenocarcinoma, acinar type [place] score: 3+4=7 (E 2.5), 3+3=6 (b 2.0) Number cores positive: 2 Total number of cores: 14 % of tissue involved: Less than 5% of all tissue examined Periprostatic fat inv.: Not identified Seminal vesicle inv.: Not identified Perineural inv.: Not identified LVI: Not identified Elevated PSA Prior PSA 12/12 5.4, 06/11 7.2, 12/13 8.0, 06/12 7.6, 12/14 6.9 9%, 06/13 11, 05/15 13, 11/14 12.1 Prior prostate biopsy May 2020 prostate biopsy negative - BPH with chronic inflammation Repeat biopsy - 11/13 BPH with small area [facility] Imaging - 01/13 MRI no suspicious lesions 30 g prostate Imaging- 01/16 MRI indeterminate PI-RADS 3 lesion in the anterior transition zone spanning the mid gland to base; 28cc prostate. [facility] Medical History Hemorrhoids Anemia Palmar nodule Colon cancer screening Internal and external bleeding hemorrhoids Surgical History History of surgery Social History Patient Tobacco Use Status: Current everyday Tobacco user Cigarettes Per Day: 0.5 Review of Systems Const Denies chills and Denies fever(s) Card Reports no additional complaints and Denies syncope Resp Denies cough GI Denies abdominal pain and Denies heartburn Reports as per HPI and Denies change in libido Neuro Denies syncope Psych Denies change in libido Endo Denies change in libido Physical Exam Const General: cooperative, healthy appearing, comfortable and no acute distress Orientation/consciousness: patient oriented x3 HEENT Face and sinus: Yes normal facial exam Mouth: moist mucous membranes Neck Neck: Yes normal visual inspection, Yes full ROM and Yes trachea midline Chest Chest palpation & inspection: normal inspection of the chest Resp Effort & Inspection: normal respiratory effort, able to speak in complete sentences and no respiratory distress GI Inspection: Yes normal to inspection Back/Spine/Pelvis Cervical Spine: normal cervical lordosis Thoracic/Lumbar Spine: thoracic and lumbar spine normal to inspection Skin General skin exam: no rashes or lesions noted Neuro General: patient oriented x3, gait normal, tone normal and moves all extremities Extrem General: Yes normal to inspection and Yes capillary refill normal Assessment & Plan Assessment & Plan (1) Prostate cancer: Code(s): C61 - Malignant neoplasm of prostate Plan Completion of genetics for surveillance assessment Patient Instructions: Imaging studies, laboratory and physical exam results were discussed and reviewed in detail. No major barriers to patient understanding were identified. An opportunity to ask questions regarding the treatment plan was provided. All questions were answered. The patient expressed understanding and agreement with the above treatment plan. The patient is aware they should contact our office by phone for worsening of their current condition or the appearance of new urologic symptoms. Compliance is encouraged with any medications and followup testing that is ordered. It is a privilege to participate in the urologic care of your patient. If you have any questions or concerns regarding treatment for the above conditions, or other urologic issues, please do not hesitate to contact me. The office telephone contact is [phone]. This note is constructed using voice recognition software. While every effort has been made to ensure accuracy early childhood education specialist errors may have been included. Yours sincerely, Dr Fredrick Daly MD, [facility] - Urology Providers of Expert, Compassionate Care for the Genitourinary System Coding Level of Care Code Est Pt Level 4 (07395) Diagnoses Prostate cancer C61
== END 2024-02-25 11:28 | disposition home or self-care (01) ==
PROVIDERS: PCP Internal Medicine; Visit Provider Urology
DX: C61 Malignant neoplasm of prostate (principal)
CPT/HCPCS: 99213

== ENCOUNTER → 2024-02-25 09:39 | Outpatient (BNVA) | payer BC, SELFPAY | PROVIDERS: PCP Internal Medicine; Visit Provider Urology ==

== ENCOUNTER 2024-03-16 08:40 | Outpatient (AMB) | payer BC, SELFPAY ==
--- NOTE | 2024-03-16 08:41 | MHC.OFFVIS ---
Intake Visit Reasons: Prolaris results Intake Note: Patient is Present for Telephone Follow Up Urology Medication: Finasteride Antibiotic Allergies:None Blood Thinners:None Allergies No Known Allergies [No Known Allergies*] Allergy (Verified 03/16/24 08:42) Medication List - Last Reconciled 03/16/24 by Fredrick Daly MD diazepam 5 mg PO TID PRN escitalopram oxalate 5 mg PO DAILY finasteride 5 mg PO DAILY 90 days hydrocodone-acetaminophen 5-325 mg 1 tab PO Q6H PRN metoprolol succinate ER 25 mg PO DAILY HPI Comments Details: Rishi is a very pleasant male. He has a patient of Dr. Meng. 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 Prostate Cancer - low volume grade group 2 02/13 Prolaris Results 02/13 Prolaris Score 2.6 Candidate for Active Surveillance 10 yr DSM 3.1% Lies on favorable side of grade 3 NCCN risk curve PSA 12 Volume 30cc pT1c Histologic type: Adenocarcinoma, acinar type [place] score: 3+4=7 (E 2.5), 3+3=6 (b 2.0) Number cores positive: 2 Total number of cores: 14 % of tissue involved: Less than 5% of all tissue examined Periprostatic fat inv.: Not identified Seminal vesicle inv.: Not identified Perineural inv.: Not identified LVI: Not identified Elevated PSA Prior PSA 12/12 5.4, 06/11 7.2, 12/13 8.0, 06/12 7.6, 12/14 6.9 9%, 06/13 11, 05/15 13, 11/14 12.1 Prior prostate biopsy May 2020 prostate biopsy negative - BPH with chronic inflammation Repeat biopsy - 11/13 BPH with small area [facility] Imaging - 01/13 MRI no suspicious lesions 30 g prostate Imaging- 01/16 MRI indeterminate PI-RADS 3 lesion in the anterior transition zone spanning the mid gland to base; 28cc prostate. [facility] Medical History Hemorrhoids Anemia Palmar nodule Colon cancer screening Internal and external bleeding hemorrhoids Surgical History History of surgery Social History Patient Tobacco Use Status: Current everyday Tobacco user Cigarettes Per Day: 0.5 Review of Systems Const All systems reviewed & are unremarkable except as noted in HPI and below Reports no additional complaints Resp Reports no additional complaints GI Reports no additional complaints Reports as per HPI Musc Reports no additional complaints Physical Exam Telemedicine evaluation Appropriate responses Regular breathing rate and rhythm HEENT Head: Yes normal to inspection Ears: hearing grossly normal bilaterally Eyes General: appearance normal, both eyes and all related structures Neck Neck: Yes normal visual inspection Chest Chest palpation & inspection: normal inspection of the chest Resp Effort & Inspection: normal respiratory effort and able to speak in complete sentences Telehealth Telehealth Location of provider rendering services: practice address Location of patient: address on file Patient Identification confirmed using: Name, : Yes Telehealth method: video Patient verbally consented to treatment: Yes Patient verbally consented to billing insurance company: Yes Patient informed of any privacy concerns related to visit: Yes Assessment & Plan Assessment & Plan (1) Prostate cancer: Code(s): C61 - Malignant neoplasm of prostate Category: Medical Plan Four month follow-up PSA Orders: Orders PSA,Total (Free>4and<10) 4 Months C61 - Malignant neoplasm of prostate Patient Instructions: Imaging studies, laboratory and physical exam results were discussed and reviewed in detail. No major barriers to patient understanding were identified. An opportunity to ask questions regarding the treatment plan was provided. All questions were answered. The patient expressed understanding and agreement with the above treatment plan. The patient is aware they should contact our office by phone for worsening of their current condition or the appearance of new urologic symptoms. Compliance is encouraged with any medications and followup testing that is ordered. It is a privilege to participate in the urologic care of your patient. If you have any questions or concerns regarding treatment for the above conditions, or other urologic issues, please do not hesitate to contact me. The office telephone contact is [phone]. This note is constructed using voice recognition software. While every effort has been made to ensure accuracy manager of financial errors may have been included. Yours sincerely, Dr Fredrick Daly MD, [facility] - Urology Providers of Expert, Compassionate Care for the Genitourinary System Coding Level of Care Code Tele Est Pt Level 3 (20519) Diagnoses Prostate cancer C61
== END 2024-03-16 09:43 | disposition home or self-care (01) ==
LOC: HO.HUSH 08:40
PROVIDERS: PCP Internal Medicine; Visit Provider Urology
DX: C61 Malignant neoplasm of prostate (principal)
CPT/HCPCS: 99213

== ENCOUNTER → 2024-03-16 08:40 | Outpatient (BNVA) | payer BC, SELFPAY | PROVIDERS: PCP Internal Medicine; Visit Provider Urology ==

== ENCOUNTER 2024-07-15 05:59 | Outpatient (REF) | payer BC, SELFPAY ==
[2024-07-15 08:07] LABS: PSA,Total (Free>4and<10) 13.74 ng/mL (0.00-4.00)
== END 2024-07-15 06:00 | disposition home or self-care (01) ==
LOC: HO.LAB 05:59
PROVIDERS: PCP Internal Medicine; Visit Provider Urology
DX: C61 Malignant neoplasm of prostate (principal); Z12.5 Encounter for screening for malignant neoplasm of prostate
CPT/HCPCS: 36415; 84153

== ENCOUNTER 2024-07-19 08:41 | Outpatient (AMB) | payer BC, SELFPAY ==
--- NOTE | 2024-07-19 08:38 | MHC.OFFVIS ---
Intake Visit Reasons: 4M Follow up-PSA(set) Intake Note: Patient is Present for Telephone 4mFollow Up/PSA Urology Medication: Finasteride Antibiotic Allergies:None Blood Thinners:None Letter Stamping Machine Operator Required: No Allergies No Known Allergies [No Known Allergies*] Allergy (Verified 07/19/24 08:39) Medication List - Last Reconciled 07/19/24 by Fredrick Daly MD diazepam 5 mg PO TID PRN escitalopram oxalate 5 mg PO DAILY finasteride 5 mg PO DAILY 90 days hydrocodone-acetaminophen 5-325 mg 1 tab PO Q6H PRN metoprolol succinate ER 25 mg PO DAILY sildenafil 100 mg PO ONCE PRN 30 days HPI Comments Details: Rishi is a very pleasant male. He has a patient of Dr. Meng. 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 Erectile dysfunction Progressive Able to obtain but can not maintain erection Interested in on demand medication trial Trial sildenafil Prostate Cancer - low volume grade group 2 02/13 Prolaris Results 02/13 Prolaris Score 2.6 Candidate for Active Surveillance 10 yr DSM 3.1% Lies on favorable side of grade 2 NCCN risk curve PSA 12 Volume 30cc pT1c Histologic type: Adenocarcinoma, acinar type [place] score: 3+4=7 (E 2.5), 3+3=6 (b 2.0) Number cores positive: 2 Total number of cores: 14 % of tissue involved: Less than 5% of all tissue examined Periprostatic fat inv.: Not identified Seminal vesicle inv.: Not identified Perineural inv.: Not identified LVI: Not identified Imaging - 01/16 MRI indeterminate PI-RADS 3 lesion in the anterior transition zone spanning the mid gland to base; 30cc prostate Elevated PSA Prior PSA 12/12 5.4, 06/11 7.2, 12/13 8.0, 06/12 7.6, 12/14 6.9 9%, 06/13 11, 05/15 13, 11/14 12.1 Prior prostate biopsy May 2020 prostate biopsy negative - BPH with chronic inflammation Repeat biopsy - 11/13 BPH with small area [facility]UCKER Imaging - 2/21 MRI no suspicious lesions 30 g prostate Imaging- 01/16 MRI indeterminate PI-RADS 3 lesion in the anterior transition zone spanning the mid gland to base; 28cc prostate. [facility] Medical History Hemorrhoids Anemia Palmar nodule Colon cancer screening Internal and external bleeding hemorrhoids Surgical History History of surgery Social History Patient Tobacco Use Status: Current everyday Tobacco user Cigarettes Per Day: 0.5 Review of Systems Const All systems reviewed & are unremarkable except as noted in HPI and below Reports no additional complaints Resp Reports no additional complaints GI Reports no additional complaints Reports as per HPI Musc Reports no additional complaints Physical Exam Telemedicine evaluation Appropriate responses Regular breathing rate and rhythm HEENT Head: Yes normal to inspection Ears: hearing grossly normal bilaterally Eyes General: appearance normal, both eyes and all related structures Neck Neck: Yes normal visual inspection Chest Chest palpation & inspection: normal inspection of the chest Resp Effort & Inspection: normal respiratory effort and able to speak in complete sentences Telehealth Telehealth Telehealth Platform: [employer] Location of provider rendering services: practice address Location of patient: address on file Patient Identification confirmed using: Name, : Yes Telehealth method: video Patient verbally consented to treatment: Yes Patient verbally consented to billing insurance company: Yes Patient informed of any privacy concerns related to visit: Yes Minutes spent on Phone/Video with Pt.: 15 Assessment & Plan Assessment & Plan (1) Erectile dysfunction due to arterial insufficiency: Code(s): N52.01 - Erectile dysfunction due to arterial insufficiency Category: Medical (2) Prostate cancer: Code(s): C61 - Malignant neoplasm of prostate Category: Medical Plan Four month follow-up PSA Orders: Orders PSA,Total (Free>4and<10) 4 Months C61 - Malignant neoplasm of prostate Prostate Specific Antigen 07/15/24 C61 - Malignant neoplasm of prostate Medications: New sildenafil administer 60 minutes before intended activity 100 mg PO ONCE 30 days PRN 30 tabs 1RF sexual activity N52.01 - Erectile dysfunction due to arterial insufficiency Patient Instructions: Imaging studies, laboratory and physical exam results were discussed and reviewed in detail. No major barriers to patient understanding were identified. An opportunity to ask questions regarding the treatment plan was provided. All questions were answered. The patient expressed understanding and agreement with the above treatment plan. The patient is aware they should contact our office by phone for worsening of their current condition or the appearance of new urologic symptoms. Compliance is encouraged with any medications and followup testing that is ordered. It is a privilege to participate in the urologic care of your patient. If you have any questions or concerns regarding treatment for the above conditions, or other urologic issues, please do not hesitate to contact me. The office telephone contact is [phone]. This note is constructed using voice recognition software. While every effort has been made to ensure accuracy content publisher errors may have been included. Yours sincerely, Dr Fredrick Daly MD, [facility] - Urology Providers of Expert, Compassionate Care for the Genitourinary System Coding Level of Care Code Tele Est Pt Level 4 (26266) Diagnoses Erectile dysfunction due to arterial insufficiency N52.01 Prostate cancer C61
== END 2024-07-19 11:24 | disposition home or self-care (01) ==
LOC: HO.HUSH 08:41
PROVIDERS: PCP Internal Medicine; Visit Provider Urology
DX: N52.01 Erectile dysfunction due to arterial insufficiency (principal); C61 Malignant neoplasm of prostate
CPT/HCPCS: 99214

== ENCOUNTER → 2024-07-19 08:41 | Outpatient (BNVA) | payer BC, SELFPAY | PROVIDERS: PCP Internal Medicine; Visit Provider Urology ==

== ENCOUNTER 2024-11-08 06:09 | Outpatient (REF) | payer BC, SELFPAY ==
[2024-11-08 08:32] LABS: PSA,Total (Free>4and<10) 14.34 ng/mL (0.00-4.00)
== END 2024-11-08 06:10 | disposition home or self-care (01) ==
LOC: HO.LAB 06:09
PROVIDERS: PCP Internal Medicine; Visit Provider Urology
DX: C61 Malignant neoplasm of prostate (principal); Z12.5 Encounter for screening for malignant neoplasm of prostate
CPT/HCPCS: 36415; 84153

== ENCOUNTER 2024-11-11 09:36 | Outpatient (AMB) | payer BC, SELFPAY ==
--- NOTE | 2024-11-11 09:37 | MHC.OFFVIS ---
Intake Visit Reasons: 4m/PSA Intake Note: Patient is present for 4M/PSA Urology Medication:FINASTERIDE,SILDENAFIL Antibiotic Allergy:NONE Blood Thinner:NONE Retail Business Analyst Required: No Allergies No Known Allergies [No Known Allergies*] Allergy (Verified 11/11/24 09:38) HPI Comments Details: Rishi is a very pleasant male. He has a patient of Dr. Meng. 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 Peyronie's disease Curved helped since last visit Discussed options including conservative therapy versus surgical procedure versus injectable collagenase We will start with vacuum pump and antioxidant therapy Erectile dysfunction Progressive Able to obtain but can not maintain erection Interested in on demand medication trial Trial sildenafil Prostate Cancer - low volume grade group 2 02/13 Prolaris Results 02/13 Prolaris Score 2.6 Candidate for Active Surveillance 10 yr DSM 3.1% Lies on favorable side of grade 2 NCCN risk curve PSA 12 Volume 30cc pT1c Histologic type: Adenocarcinoma, acinar type [place] score: 3+4=7 (E 2.5), 3+3=6 (b 2.0) Number cores positive: 2 Total number of cores: 14 % of tissue involved: Less than 5% of all tissue examined Periprostatic fat inv.: Not identified Seminal vesicle inv.: Not identified Perineural inv.: Not identified LVI: Not identified Imaging - 01/16 MRI indeterminate PI-RADS 3 lesion in the anterior transition zone spanning the mid gland to base; 30cc prostate Elevated PSA Prior PSA 12/12 5.4, 06/11 7.2, 12/13 8.0, 06/12 7.6, 12/14 6.9 9%, 06/13 11, 05/15 13, 11/14 12.1 Prior prostate biopsy May 2020 prostate biopsy negative - BPH with chronic inflammation Repeat biopsy - 11/13 BPH with small area TUCKER Imaging - 01/13 MRI no suspicious lesions 30 g prostate Imaging- 01/16 MRI indeterminate PI-RADS 3 lesion in the anterior transition zone spanning the mid gland to base; 28cc prostate. [facility] Medical History Hemorrhoids Anemia Palmar nodule Colon cancer screening Internal and external bleeding hemorrhoids Surgical History History of surgery Social History Patient Tobacco Use Status: Current everyday Tobacco user Cigarettes Per Day: 0.5 Review of Systems Const Denies chills and Denies fever(s) Card Reports no additional complaints and Denies syncope Resp Denies cough GI Denies abdominal pain and Denies heartburn Reports as per HPI and Denies change in libido Neuro Denies syncope Psych Denies change in libido Endo Denies change in libido Physical Exam Const General: cooperative, healthy appearing, comfortable and no acute distress Orientation/consciousness: patient oriented x3 HEENT Face and sinus: Yes normal facial exam Mouth: moist mucous membranes Neck Neck: Yes normal visual inspection, Yes full ROM and Yes trachea midline Chest Chest palpation & inspection: normal inspection of the chest Resp Effort & Inspection: normal respiratory effort, able to speak in complete sentences and no respiratory distress GI Inspection: Yes normal to inspection Back/Spine/Pelvis Cervical Spine: normal cervical lordosis Thoracic/Lumbar Spine: thoracic and lumbar spine normal to inspection Skin General skin exam: no rashes or lesions noted Neuro General: patient oriented x3, gait normal, tone normal and moves all extremities Extrem General: Yes normal to inspection and Yes capillary refill normal Results AMB Urinalysis, Automated UA Leukoctes 0 Lizzie/uL Last Edit by CATHERINE Mckinley on 11/11/24 09:48 UA Nitrite Negative Last Edit by CATHERINE Mckinley on 11/11/24 09:48 UA Urobilinogen 0.2 mg/dL Last Edit by CATHERINE Mckinley on 11/11/24 09:48 UA Protein 15 mg/dL Last Edit by CATHERINE Mckinley on 11/11/24 09:48 UA pH 6.0 Last Edit by CATHERINE Mckinley on 11/11/24 09:48 UA Blood 200 Eze/uL Last Edit by CATHERINE Mckinley on 11/11/24 09:48 UA Specific Hayes 1.020 Last Edit by CATHERINE Mckinley on 11/11/24 09:48 UA Ketone Negative Last Edit by CATHERINE Mckinley on 11/11/24 09:48 UA Bilirubin 0 mg/dL Last Edit by CATHERINE Mckinley on 11/11/24 09:48 UA Glucose 0 mg/dL Last Edit by CATHERINE Mckinley on 11/11/24 09:48 Results Reviewed Results Reviewed: Laboratory Last Values Urine pH (Auto) 6.0 11/11/24 09:47 Specific Hayes (Auto) 1.020 11/11/24 09:47 Urine Protein (Auto) 15 mg/dL 11/11/24 09:47 Glucose (UA)(Auto) 0 mg/dL 11/11/24 09:47 Urine Ketones (Auto) Negative 11/11/24 09:47 Urine Blood (Auto) 200 Eze/uL 11/11/24 09:47 Urine Nitrite (Auto) Negative 11/11/24 09:47 Urine Bilirubin (Auto) 0 mg/dL 11/11/24 09:47 Urine Urobilinogen (Auto) 0.2 mg/dL 11/11/24 09:47 Leukocyte Esterase (Auto) 0 Lizzie/uL 11/11/24 09:47 Assessment & Plan Assessment & Plan (1) BPH w urinary obs/LUTS: Code(s): N40.1 - Benign prostatic hyperplasia with lower urinary tract symptoms; N13.8 - Other obstructive and reflux uropathy Category: Medical (2) Prostate cancer: Code(s): C61 - Malignant neoplasm of prostate Category: Medical (3) Peyronie's disease: Code(s): N48.6 - Induration penis plastica Category: Medical Plan Peyronie's information and medications prescribed Four month follow-up PSA Orders: Orders PSA,Total (Free>4and<10) 4 Months C61 - Malignant neoplasm of prostate Testosterone, Total 4 Months C61 - Malignant neoplasm of prostate AMB Urinalysis Automated Today Z13.9 - Encounter for screening, unspecified Medications: New pentoxifylline ER administer with meals 400 mg PO BID 90 days 180 tabs 1RF N48.6 - Induration penis plastica tadalafil BIN [employer] [id number] 5 mg PO DAILY 90 days 90 tabs 1RF sexual activity N32.0 - Bladder-neck obstruction, N52.01 - Erectile dysfunction due to arterial insufficiency vitamin E (dl, acetate) 450 mg PO DAILY 90 days 90 caps 1RF N48.6 - Induration penis plastica Patient Instructions: Imaging studies, laboratory and physical exam results were discussed and reviewed in detail. No major barriers to patient understanding were identified. An opportunity to ask questions regarding the treatment plan was provided. All questions were answered. The patient expressed understanding and agreement with the above treatment plan. The patient is aware they should contact our office by phone for worsening of their current condition or the appearance of new urologic symptoms. Compliance is encouraged with any medications and followup testing that is ordered. It is a privilege to participate in the urologic care of your patient. If you have any questions or concerns regarding treatment for the above conditions, or other urologic issues, please do not hesitate to contact me. The office telephone contact is [phone]. This note is constructed using voice recognition software. 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 Yours sincerely, Dr Fredrick Daly MD, JAQUAN [facility] - Urology Providers of Expert, Compassionate Care for the Genitourinary System Coding Level of Care Code Est Pt Level 4 (04056) Diagnoses BPH w urinary obs/LUTS N40.1; N13.8 Prostate cancer C61 Peyronie's disease N48.6
== END 2024-11-11 10:05 | disposition home or self-care (01) ==
PROVIDERS: PCP Internal Medicine; Visit Provider Urology
DX: N40.1 Benign prostatic hyperplasia with lower urinary tract symptoms (principal); N13.8 Other obstructive and reflux uropathy; C61 Malignant neoplasm of prostate; N48.6 Induration penis plastica; Z13.9 Encounter for screening, unspecified
CPT/HCPCS: 99214

== ENCOUNTER → 2024-11-11 09:36 | Outpatient (BNVA) | payer BC, SELFPAY | PROVIDERS: PCP Internal Medicine; Visit Provider Urology | DX: N40.1 Benign prostatic hyperplasia with lower urinary tract symptoms (principal); N13.8 Other obstructive and reflux uropathy; C61 Malignant neoplasm of prostate; N48.6 Induration penis plastica | CPT/HCPCS: 81003 ==

== ENCOUNTER 2025-03-03 05:56 | Outpatient (REF) | payer BC, SELFPAY ==
[2025-03-03 07:47] LABS: PSA,Total (Free>4and<10) 18.31 ng/mL (0.00-4.00)
[2025-03-08 14:49] LABS: Testosterone, Total 476 ng/dL (250-1100)
== END 2025-03-03 05:57 | disposition home or self-care (01) ==
LOC: HO.LAB 05:56
PROVIDERS: PCP Internal Medicine; Visit Provider Urology
DX: C61 Malignant neoplasm of prostate (principal); Z12.5 Encounter for screening for malignant neoplasm of prostate
CPT/HCPCS: 36415; 84153; 84403

== ENCOUNTER 2025-03-14 09:06 | Outpatient (AMB) | payer BC, SELFPAY ==
--- NOTE | 2025-03-14 09:11 | MHC.OFFVIS ---
Intake Visit Reasons: 4m/PSA/Testo Intake Note: Rishi 59 yr old male presents today for his 4 month follow up S/P PSA and testosterone Allergies No Known Allergies [No Known Allergies*] Allergy (Verified 03/14/25 09:13) HPI Comments Details: Rishi is a very pleasant male. He has a patient of Dr. Meng. 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 Peyronie's disease Curved helped since last visit Discussed options including conservative therapy versus surgical procedure versus injectable collagenase We will start with vacuum pump and antioxidant therapy Erectile dysfunction Progressive Able to obtain but can not maintain erection Interested in on demand medication trial Trial sildenafil Prostate Cancer - low volume grade group 2 02/13 Prolaris Results 02/13 Prolaris Score 2.6 Candidate for Active Surveillance 10 yr DSM 3.1% Lies on favorable side of grade 2 NCCN risk curve PSA 12 Volume 30cc pT1c Histologic type: Adenocarcinoma, acinar type [place] score: 3+4=7 (E 2.5), 3+3=6 (b 2.0) Number cores positive: 2 Total number of cores: 14 % of tissue involved: Less than 5% of all tissue examined Periprostatic fat inv.: Not identified Seminal vesicle inv.: Not identified Perineural inv.: Not identified LVI: Not identified Imaging - 01/16 MRI indeterminate PI-RADS 3 lesion in the anterior transition zone spanning the mid gland to base; 30cc prostate Elevated PSA Prior PSA 12/12 5.4, 06/11 7.2, 12/13 8.0, 06/12 7.6, 12/14 6.9 9%, 06/13 11, 05/15 13, 11/14 12.1 Prior prostate biopsy May 2020 prostate biopsy negative - BPH with chronic inflammation Repeat biopsy - 11/13 BPH with small area TUCKER Imaging - 01/13 MRI no suspicious lesions 30 g prostate Imaging- 01/16 MRI indeterminate PI-RADS 3 lesion in the anterior transition zone spanning the mid gland to base; 28cc prostate. [facility] Medical History Hemorrhoids Anemia Palmar nodule Colon cancer screening Internal and external bleeding hemorrhoids Surgical History History of surgery Social History (Updated 03/14/25 @ 09:14 by CATHERINE Groves) Patient Tobacco Use Status: Current everyday Tobacco user Cigarettes Per Day: 0.5 Current occupational status: unemployed Review of Systems Const Denies chills and Denies fever(s) Card Reports no additional complaints and Denies syncope Resp Denies cough GI Denies abdominal pain and Denies heartburn Reports as per HPI and Denies change in libido Neuro Denies syncope Psych Denies change in libido Endo Denies change in libido Physical Exam Const General: cooperative, healthy appearing, comfortable and no acute distress Orientation/consciousness: patient oriented x3 HEENT Face and sinus: Yes normal facial exam Mouth: moist mucous membranes Neck Neck: Yes normal visual inspection, Yes full ROM and Yes trachea midline Chest Chest palpation & inspection: normal inspection of the chest Resp Effort & Inspection: normal respiratory effort, able to speak in complete sentences and no respiratory distress GI Inspection: Yes normal to inspection Back/Spine/Pelvis Cervical Spine: normal cervical lordosis Thoracic/Lumbar Spine: thoracic and lumbar spine normal to inspection Skin General skin exam: no rashes or lesions noted Neuro General: patient oriented x3, gait normal, tone normal and moves all extremities Extrem General: Yes normal to inspection and Yes capillary refill normal Assessment & Plan Assessment & Plan (1) Elevated PSA: Comment: May 2020 Neg Biopsy Code(s): R97.20 - Elevated prostate specific antigen [PSA] Category: Medical (2) Prostate cancer: Code(s): C61 - Malignant neoplasm of prostate Category: Medical Plan Prostate MRI Orders: Orders MR Prostate wo/w con Today C61 - Malignant neoplasm of prostate, R97.20 - Elevated prostate specific antigen [PSA] Patient Instructions: This note is constructed using voice recognition software. While every effort has been made to ensure accuracy clinical implementation specialist errors may have been included. Imaging studies, laboratory and physical exam results were discussed and reviewed in detail. No major barriers to patient understanding were identified. An opportunity to ask questions regarding the treatment plan was provided. All questions were answered. The patient expressed understanding and agreement with the above treatment plan. The patient is aware they should contact our office by phone for worsening of their current condition or the appearance of new urologic symptoms. Compliance is encouraged with any medications and followup testing that is ordered. It is a privilege to participate in the urologic care of your patient. If you have any questions or concerns regarding treatment for the above conditions, or other urologic issues, please do not hesitate to contact me. The office telephone contact is [phone]. Sincerely, Dr Fredrick Daly MD, JAQU[facility] - Urology Compassionate Specialist Care for the Genitourinary System Coding Level of Care Code Est Pt Level 3 (45449) Complex EM visit Add On G2211 Diagnoses Elevated PSA R97.20 Prostate cancer C61
--- OUTSIDE RECORDS SUMMARY | 2025-03-14 09:42 | XMS_ITS ---
Author Name [facility] Organization Unknown History of Medication Use Medication Directions Dispensed Refills Start Date End Date Stat us amoxicillin 875 mg-potassium clavulanate 125 mg tablet TAKE 1 TABLET BY MOUTH TWICE A DAY FOR 7 DAYS active diazepam 5 mg tablet TAKE 1 TABLET BY MOUTH THREE TIMES A DAY NEEDED active hydrocodone 5 mg-acetaminophen 325 mg tablet TAKE 1 TABLET BY MOUTH EVERY 6 HOURS NEEDED FOR PAIN active metoprolol succinate ER 25 mg tablet,extended release 24 hr TAKE 1 TABLET BY MOUTH EVERY DAY active sildenafil 100 mg tablet PLEASE SEE ATTACHED FOR DETAILED DIRECTIONS active tadalafil 5 mg tablet TAKE 1 TABLET BY MOUTH DAILY FOR SEXUAL ACTIVITY active vitamin E (dl, acetate) 450 mg (1,000 unit) capsule TAKE 1 CAPSULE BY MOUTH DAILY FOR 90 DAYS active Problems Problem Status Onset Date Problem Type Date of Resoluti on Source Hip pain active 2025-02-19 ProblemAct ENS_AONE CT Contusion of hip active 2025-02-03 ProblemAct E NS_AONECT Encounters Encounter Type Encounter Reason Primary Diagnosis Location Date Ambulatory [facility] 03/04/2025 Ambulatory [facility] 02/20/2025 Ambulatory [facility] 02/20/2025 Ambulatory [facility] 02/20/2025 Ambulatory [facility] 02/06/2025 Ambulatory [facility] 02/06/2025 Ambulatory [facility] 02/03/2025 Ambulatory [facility] 02/03/2025 Ambulatory [facility] 02/02/2025
== END 2025-03-14 09:31 | disposition home or self-care (01) ==
LOC: HO.HUSH 09:06
PROVIDERS: PCP Internal Medicine; Visit Provider Urology
DX: R97.20 Elevated prostate specific antigen [PSA] (principal); C61 Malignant neoplasm of prostate
CPT/HCPCS: 99213

== ENCOUNTER → 2025-03-14 09:06 | Outpatient (BNVA) | payer BC, SELFPAY | PROVIDERS: PCP Internal Medicine; Visit Provider Urology ==

== ENCOUNTER → 2025-05-02 08:19 | Outpatient (BNV) | payer BC, SELFPAY | PROVIDERS: PCP Internal Medicine; Visit Provider Radiology Diagnostic Radiology | DX: R97.20 Elevated prostate specific antigen [PSA] (principal) | CPT/HCPCS: 72197 ==

== ENCOUNTER 2025-05-02 08:30 | Outpatient (REF) | payer BC, SELFPAY ==
--- NOTE | ~2025-05-02 | MR_ITS ---
EXAMINATION: MR PROSTATE WITHOUT THEN WITH IV CONTRAST HISTORY: R97.20 - Elevated prostate specific antigen [PSA] TECHNIQUE: 1.5T body coil survey of the pelvis was performed. Phase array coil imaging of the prostate was performed in multiplanar high resolution axial, coronal, sagittal fast spin echo T2 and axial T1 weighted imaging sequences. Axial diffusion imaging at intermediate and high field performed with ADC mapping. Next, mL Gadavist was given by intravenous infusion, and dynamic axial imaging performed. COMPARISON: There are no prior studies available for comparison. CLINICAL DATA: Most recent PSA: 18.31 ng/mL on 03/03/2025. PSA Density: 0.69 ng/mL squared Prostate Biopsy: Biopsy on 02/08/2024 demonstrated prostate adenocarcinoma with a [place] score 3+4 = 7. FINDINGS: Prostate size: 4.0 x 4.4 x 2.9 cm. Calculated prostate volume is 26.5 mL. Hemorrhage: None. Transitional Zone: There is moderate heterogeneous nodular hypertrophy of the transitional zone. There is a noncircumscribed area of interest in the anterior aspect of the transitional zone with imaging characteristics as follows: Area of interest #1: Location: Anterior transitional zone at the base extending to the mid gland (series 7 images 13-16) measuring approximately 1.7 x 0.9 cm. DWI PI-RADS v2.1 score: 5 T2 PI-RADS v2.1 score: 5 DCE PI-RADS v2.1 score: + Overall PI-RADS v2.1 score: 5 Capsular contact: yes Extracapsular extension: None Seminal vesicle invasion: None Neurovascular bundle involvement: None Peripheral Zone: There is diffuse slightly decreased T2 signal intensity within the left peripheral zone. However, there is no restricted diffusion or focal abnormality. Seminal Vesicles/Ejaculatory Ducts: Symmetric and normal in signal and caliber. Pelvic Lymph Nodes: No obturator or internal iliac lymph nodes meeting size criteria for adenopathy. Marrow Signal: Normal marrow signal and enhancement without focal lesion identified. Other findings: Incidental note is made of a 4.1 cm aneurysm of the abdominal aorta. There is diverticulosis of the sigmoid colon, without evidence of diverticulitis. MR/MR Prostate wo/w con IMPRESSION: Focus of abnormal signal intensity in the anterior transitional zone as described, highly suspicious for clinically significant prostate carcinoma. PI-RADS 5: Very high (clinically significant cancer is highly likely to be present) PI-RADS Assessment Categories PI-RADS 1: Very low (clinically significant cancer is highly unlikely to be present) PI-RADS 2: Low (clinically significant cancer is unlikely to be present) PI-RADS 3: Intermediate (the presence of clinically significant cancer is equivocal) PI-RADS 4: High (clinically significant cancer is likely to be present) PI-RADS 5: Very high (clinically significant cancer is highly likely to be present) [employer]. MR Prostate Imaging Reporting and Data System version 2.1. [email or web address] Electronically signed by: Isidro Nelson MD 05/02/2025 10:47 AM EDT
[2025-05-02] MEDS: gadobutroL 7.5 ML VIAL IVPUSH (09:42)
== END 2025-05-02 08:31 | disposition home or self-care (01) ==
LOC: HO.MRI 08:30
PROVIDERS: PCP Internal Medicine; Visit Provider Urology
DX: R97.20 Elevated prostate specific antigen [PSA] (principal); C61 Malignant neoplasm of prostate
CPT/HCPCS: 72197; A9585

== ENCOUNTER 2025-05-17 08:50 | Outpatient (AMB) | payer BC, SELFPAY ==
--- NOTE | 2025-05-17 08:51 | MHC.OFFVIS ---
Intake Visit Reasons: follow up/MRI Intake Note: Patient is present for MRI F/U Urology Medication:FINASTERIDE,SILDENAFIL,TADALAFIL,VITAMIN E,PENTOXIFYLLINE Antibiotic Allergy:NONE Blood Thinner:NONE Authorization Nurse Required: No Allergies No Known Allergies (No Known Allergies*) Allergy (Verified 05/17/25 08:52) HPI Comments Details: Rishi is a very pleasant male. He has a patient of Dr. Meng. He is seen for the following urologic conditions - elevated PSA - BPH - prostate cancer - erectile dysfunction - Peyronie's disease Telemedicine Evaluation 15 min Consultation [facility] Video Discussion of MRI results - anterior transition zone lesion 1.7 cm These are commonly associated with a higher PSA but favorable biopsy Recommend targeted cryotherapy versus brachytherapy versus robotic prostatectomy Prostate Cancer Therapy Discussion today focused on treatment options for prostate cancer. The patient has already reviewed educational materials that had been provided to him in printed form. The NCCN criteria for imaging, molecular testing and germ line testing were discussed. The discussion was then focused on therapeutic options which include 1) Deferred therapy/active surveillance. Recommended in the setting of low volume, very low risk and low risk disease. Criteria include 3 cores all less, same side, no core greater than 50% disease. Evaluation may be augmented with imaging such as pelvic MRI and genetic evaluation of biopsy material. Somatic tissue genetic testing such as Prolaris, which focuses on tumor-specific pathogenic variants that may identify an indication for further germline testing and can guide therapeutic decisions in the setting of low risk and low volume disease. - The patient was a candidate for active surveillance. NCCN Prostate Cancer Guideline 4.2022 PROS-F Page 2 PRINCIPLES OF ACTIVE SURVEILLANCE AND OBSERVATION Confirmatory Testing to Establish Appropriateness of Active Surveillance: - Goals of confirmatory testing are to help facilitate early identification of those patients who may be at a higher risk of future grade reclassification or cancer progression. - Since an initial prostate biopsy may underestimate tumor grade or volume, confirmatory testing is strongly recommended within the first 6 to 12 months of diagnosis for patients who are considering active surveillance. - Options for confirmatory testing include prostate biopsy, mpMRI with calculation of PSA density (and repeat biopsy as indicated), and/or molecular tumor analysis, see Principles of Risk Stratification (PROS-D). - Early confirmatory testing may not be necessary in patients who have had an mpMRI prior to diagnostic biopsy. ?All patients should undergo a confirmatory prostate biopsy within 1?2 years of their diagnostic biopsy 2) Targeted Cryotherapy Ablation. The technique of cryotherapy was described. PSA free progression rates were discussed. Suitable candidates in general have low volume grade group 1 or grade group 2 disease. Typically pelvic MRI with targeted mapping biopsies are required for treatment planning. - The patient is a candidate for image guided targeted cryotherapy ablation. 3) Robotic Prostatectomy. Salient features of the patient's PSA, Rinard score and disease stage were applied to the [facility] [place] nomogram. Relevant rates of extracapsular extension, seminal vesicle involvement radha involvement with discussed. Pathologic up staging and down staging on final specimen was discussed. Salient features of the procedure, hospitalization and recovery were discussed. - The patient is a candidate for robotic prostatectomy. 4) Radiation therapy was described. IMRT, hyperfractionated therapy, permanent seed implant with all without concomitant androgen deprivation therapy and rectal protection were discussed. There is a small separation regarding cancer control between radiation and prostatectomy at approximately 15 years. There is an evolving preference for hyper fractionated therapy. This gives the same radiation total dose in a reduced number of individual treatment sessions. This approach is associated with higher risks of rectal bleeding. To ameliorate these risks injection of a spacer gel posterior to the prostate has been advocated. This is only indicated in patients without evidence of extracapsular extension posteriorly, and should be considered with caution where disease is primary grade 4. Brachytherapy was described in detail. Typically this is a same day procedure. Therapy is typically well tolerated and gives good control for low-risk prostate cancer and cancer that does not involve neurovascular invasion. - The patient is a candidate for brachytherapy Different risks were described for each therapeutic option. Ranges from the published literature were discussed. Consequent morbidity and treatment to address complications were discussed. These include - robotic prostatectomy - Typically patients are in hospital for one day and miss 4 weeks of work. The importance of preoperative walking and Kegel exercises was stressed. Complications, including but not limited to; acute complications regarding blood loss, transfusion, DVT, ileus, wound infection and potential mortality. Long-term complications such as impotence, UTI, urethral stricture, bladder neck contracture, incontinence. Penile shrinkage and chronic pain were discussed and reviewed. - radiation - IMRT typically this takes 25-40 daily treatments administered on a Thursday through Thursday sequence. Treatment is normally well tolerated. associated side effects include urge, frequency, dysuria, hematuria, loose bowels and fatigue, particularly toward the end of therapy. These can be ameliorated to some degree with medication. Long-term risks regarding impotence and a small risk of chronic urinary urge and incontinence were discussed - brachytherapy General anesthesia is used. Radioactive seeds are placed. There may be a required planning visit. Risks regarding anesthesia with DVT, PE, infection, urinary retention, urgency, and frequency were discussed. 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 DWI PI-RADS v2.1 score: 5 T2 PI-RADS v2.1 score: 5 DCE PI-RADS v2.1 score: + Overall PI-RADS v2.1 score: 5 Capsular contact: yes Extracapsular extension: None Seminal vesicle invasion: None Neurovascular bundle involvement: None Prolaris Results 02/13 Prolaris Score 2.6 Candidate for Active Surveillance 10 yr DSM 3.1% Lies on favorable side of grade 2 NCCN risk curve PSA 12 Volume 30cc pT1c Histologic type: Adenocarcinoma, acinar type Rinard score: 3+4=7 (E 2.5), 3+3=6 (b 2.0) Number cores positive: 2 Total number of cores: 14 % of tissue involved: Less than 5% of all tissue examined Periprostatic fat inv.: Not identified Seminal vesicle inv.: Not identified Perineural inv.: Not identified LVI: Not identified Imaging - 01/16 MRI indeterminate PI-RADS 3 lesion in the anterior transition zone spanning the mid gland to base; 30cc prostate Elevated PSA Prior PSA 12/12 5.4, 06/11 7.2, 12/13 8.0, 06/12 7.6, 12/14 6.9 9%, 06/13 11, 05/15 13, 11/14 12.1 Prior prostate biopsy May 2020 prostate biopsy negative - BPH with chronic inflammation Repeat biopsy - 11/13 BPH with small area TUCKER Imaging - 01/13 MRI no suspicious lesions 30 g prostate Imaging- 01/16 MRI indeterminate PI-RADS 3 lesion in the anterior transition zone spanning the mid gland to base; 28cc prostate. [facility] Medical History Hemorrhoids Anemia Palmar nodule Colon cancer screening Internal and external bleeding hemorrhoids Surgical History History of surgery Social History (Updated 03/14/25 @ 09:14 by CATHERINE Groves) Patient Tobacco Use Status: Current everyday Tobacco user Cigarettes Per Day: 0.5 Current occupational status: unemployed Review of Systems Const All systems reviewed & are unremarkable except as noted in HPI and below Reports no additional complaints Resp Reports no additional complaints GI Reports no additional complaints Reports as per HPI Musc Reports no additional complaints Physical Exam Telemedicine evaluation Appropriate responses Regular breathing rate and rhythm HEENT Head: Yes normal to inspection Ears: hearing grossly normal bilaterally Eyes General: appearance normal, both eyes and all related structures Neck Neck: Yes normal visual inspection Chest Chest palpation & inspection: normal inspection of the chest Resp Effort & Inspection: normal respiratory effort and able to speak in complete sentences Telehealth Telehealth Telehealth Platform: [facility] Location of provider rendering services: practice address Location of patient: address on file Patient Identification confirmed using: Name, : Yes Telehealth method: video Patient verbally consented to treatment: Yes Patient verbally consented to billing insurance company: Yes Patient informed of any privacy concerns related to visit: Yes Assessment & Plan Assessment & Plan (1) Prostate cancer: Code(s): C61 - Malignant neoplasm of prostate Category: Medical Plan Risks, benefits and alternatives to therapy were discussed. These include but are not limited to infection, bleeding, damage to local organs and tissues, need for further interventions. Anesthetic risks regarding cardiac arrhythmia, blood clots, and potential mortality were discussed. The patient understands the typical recovery time and the outpatient nature of the procedure. After consideration of these risks the patient gives full informed consent and they wish to move ahead with the procedure. - targeted cryotherapy Patient Instructions: This note is constructed using voice recognition software. While every effort has been made to ensure accuracy core rescuer errors may have been included. Imaging studies, laboratory and physical exam results were discussed and reviewed in detail. No major barriers to patient understanding were identified. An opportunity to ask questions regarding the treatment plan was provided. All questions were answered. The patient expressed understanding and agreement with the above treatment plan. The patient is aware they should contact our office by phone for worsening of their current condition or the appearance of new urologic symptoms. Compliance is encouraged with any medications and followup testing that is ordered. It is a privilege to participate in the urologic care of your patient. If you have any questions or concerns regarding treatment for the above conditions, or other urologic issues, please do not hesitate to contact me. The office telephone contact is [phone]. Sincerely, Dr Fredrick Daly MD, [facility] - Urology Compassionate Specialist Care for the Genitourinary System Coding Level of Care Code Tele Est Pt Level 4 (84002) Complex EM visit Add On G2211 Diagnoses Prostate cancer C61
== END 2025-05-17 11:16 | disposition home or self-care (01) ==
LOC: HO.HUSH 08:50
PROVIDERS: PCP Internal Medicine; Visit Provider Urology
DX: C61 Malignant neoplasm of prostate (principal)
CPT/HCPCS: 99214

== ENCOUNTER 2025-07-10 08:01 | Day surgery (SDC) | payer BC, SELFPAY ==
--- OUTSIDE RECORDS SUMMARY | 2025-06-14 14:34 | XMS_ITS ---
Author Name [facility] Organization Unknown History of Medication [...] Diagnosis Location Date Ambulatory [facility] 03/04/2025 Ambulatory [facility] 02/20/2025 Ambulatory [facility] 02/20/2025 Ambulatory [facility] 02/20/2025 Ambulatory [facility] 02/06/2025 Ambulatory [facility] 02/06/2025 Ambulatory [facility] 02/03/2025 Ambulatory [facility] 02/03/2025 Ambulatory [facility] 02/02/2025
--- NOTE | 2025-07-07 10:47 | HO.ANESPROP2 ---
Documented by User: Sarah Shelton NP 07/07/25 10:49 HPI - Anesthesia Eval Consult details Narrative: 59 yr old male for Cryosurgical Ablation Prostate s/p prostate needle biopsy with GA LMA 5 in 2023 [facility] Active Problems Active Problems: All Active Problems (Updated 11/11/24 @ 10:02 by Fredrick Daly MD) Peyronie's disease (Acute) Erectile dysfunction due to arterial insufficiency (Acute) Prostate cancer (Acute) Elevated PSA (Acute) BPH w urinary obs/LUTS (Acute) Past Medical History Medical History Hemorrhoids Anemia Palmar nodule Colon cancer screening Internal and external bleeding hemorrhoids Family History Family history of problems with anesthesia: No Surgical History Surgical History History of surgery History of Problems with Anesthesia: No Social History Social History (Updated 03/14/25 @ 09:14 by CATHERINE Groves) Are you a primary primary care coordinator to a significant other at home: No Do you presently have visiting nurse or other home services: No Patient Tobacco Use Status: Current everyday Tobacco user Tobacco use type: Cigarette Cigarettes Per Day: 0.5 Smoked in Last 30 Days: Yes Patient Interested in Nicotine Replacement: No Substance Use Frequency: Occasionally Have you been hit, kicked, punched, or otherwise hurt by someone within the past year? If so, by whom?: No Are you DNR?: No Advance Directives: No Advance Directives Information Provided: Yes Poor oral hygiene: No Current occupational status: unemployed Meds Allergies Allergy/AdvReac Type Severity Reaction Status Date / Time No Known Allergies (No Known Allergy Verified 07/10/25 09:06 Allergies*) Home Medications ?Medication ?Instructions ?Recorded ?Confirmed ?Last Taken ?Type diazepam 5 mg tablet 5 mg PO TID PRN muscle spasm 01/08/21 07/10/25 Unknown History escitalopram oxalate 5 mg tablet 5 mg PO DAILY 12/13/21 07/10/25 07/10/25 History metoprolol succinate 25 mg 25 mg PO DAILY 12/13/21 07/10/25 07/09/25 History tablet,extended release 24 hr hydrocodone 5 mg-acetaminophen 325 1 tab PO Q6H PRN Pain 11/17/23 07/10/25 Unknown History mg tablet Assessment and Plan Final Anesthetic Review Family History of Problems with Anesthesia: No History of Problems with Anesthesia: No Documented by User: Dawood Yeager MD 07/10/25 10:20 [facility] Past Medical History Medical History Hemorrhoids Anemia Palmar nodule Colon cancer screening Internal and external bleeding hemorrhoids Surgical History Surgical History History of surgery Social History Social History (Updated 03/14/25 @ 09:14 by CATHERINE Groves) Are you a primary primary care coordinator to a significant other at home: No Do you presently have visiting nurse or other home services: No Patient Tobacco Use Status: Current everyday Tobacco user Tobacco use type: Cigarette Cigarettes Per Day: 0.5 Smoked in Last 30 Days: Yes Patient Interested in Nicotine Replacement: No Substance Use Frequency: Occasionally Have you been hit, kicked, punched, or otherwise hurt by someone within the past year? If so, by whom?: No Are you DNR?: No Advance Directives: No Advance Directives Information Provided: Yes Poor oral hygiene: No Current occupational status: unemployed Meds Allergies Allergy/AdvReac Type Severity Reaction Status Date / Time No Known Allergies (No Known Allergy Verified 07/10/25 09:06 Allergies*) Home Medications ?Medication ?Instructions ?Recorded ?Confirmed ?Last Taken ?Type diazepam 5 mg tablet 5 mg PO TID PRN muscle spasm 01/08/21 07/10/25 Unknown History escitalopram oxalate 5 mg tablet 5 mg PO DAILY 12/13/21 07/10/25 07/10/25 History metoprolol succinate 25 mg 25 mg PO DAILY 12/13/21 07/10/25 07/09/25 History tablet,extended release 24 hr hydrocodone 5 mg-acetaminophen 325 1 tab PO Q6H PRN Pain 11/17/23 07/10/25 Unknown History mg tablet Exam Airway Mallampati Class: II TM Dist: <=3cm Neck ROM: Full Loose/Missing/Broken Teeth: No Heart: ok Lungs: ok Assessment and Plan Assessment Anesthesia Assessment: Anesthesia Plan Discussed and Chart Reviewed Final Anesthetic Review NPO: Yes ASA Class: II Final Preanesthetic Review: No Changes in Pt Med Stat, Meds/Allgs Chart Reviewed, Consent Obtained/Reviewed and Anes Risks/Benef Reviewed Patient Risk: Low Procedure Risk: Low Anesthetic Plan Anesthetic Plan: GA and Agree w/ Assess. and Plan Disposition: Standard PACU
[2025-07-10] VITALS (10 sets, daily range): BP systolic 107–152; BP diastolic 72–100; PULSE 55–68; RESP 14–18; TEMP 36.1–36.7; O2SAT 96–100; BMI 23.0
[2025-07-10] MEDS: Lactated Ringers 1,000 ML 100 ML IVCONT (08:50)
--- NOTE | 2025-07-10 10:08 | MHC.SHP ---
Pre-Procedural Eval Section A - 24 Hr Update-Section A only Date of Service: 07/10/25 The patient is an INPATIENT: No Changes since office visit: No Cold of Flu in the past 2 weeks, No New Medical Problems, No Changes in Medication and No Patient answered all questions The patient has been examined within 24 hours of the surgical procedure. The History & Physical has been completed within 30 days and I have reviewed it.: Yes Section B - Complete if H&P > 30 days Chief Complaint: Malignant neoplasm of prostate Details of Present Illness: Targeted prostate cryotherapy Relevant Social History: None Present Medications: see Short Stay Collaborative assessment Medical History: No relevant PMH History of Previous Operations: No relevant previous surgery Allergies: Allergies Allergy/AdvReac Type Severity Reaction Status Date / Time No Known Allergies (No Known Allergy Verified 07/10/25 09:06 Allergies*) Review of Systems Sugical H&P ROS: Negative: Constitution, Cardiovascular, Respiratory, Neurological, Psychiatric, Hem-Onc, Allergic/Immunologic, Gastrointestinal, Genitourinary, Musculoskeletal, Integumentary, Endocrine and Eyes/Ears/Nose/Throat Exam Surgical H&P Exam: Normal: HEENT, Normal: Heart, Normal: Lungs, Normal: Extremities, Normal: Abdomen, Normal: Skin and Normal: Neurological Plan Diagnosis/Plan: Unchanged I have reviewed the history and physical and performed a pertinent physical examination on my patient. No changes have occurred unless specified. Time Spent With Patient Time: Total time managing care of this patient today ____ minutes.
--- NOTE | 2025-07-10 11:38 | W.PM.OPN ---
Operative Note Operative Note Date of Service: 07/10/25 Narrative: Preoperative diagnosis: Prostate Cancer Postoperative diagnosis: Prostate Cancer Procedure: 1. Bradley catheter placement 1. Transrectal Ultrasound prostate 2. Creation of 3D transrectal US model with image registration and model correction including overlap of virtual targeted locations 3. Ultrasound guidance of cryotherapy needle and probe placement 4. Transperineal ultrasound-guided prostate cryotherapy Surgeon: Dr. Fredrick Daly Anesthetic: LMA Indications for procedure: Prostate Cancer - on MRI 2 lesions seen peripherally right and left - Anterior transitional zone at the base extending to the mid gland (series 7 images 13-16) measuring approximately 1.7 x 0.9 cm Procedure: After informed consent was verified, the patient was brought into the procedure area. Patient identity confirmed. Perioperative antibiotics confirmed. Safety pause time out performed. Anesthesia performed per protocol. Scrotum taped out of operative area. Iodine prep used. 16 Fr bradley catheter placed on the field with catheter cap. Perineal injection of local anesthetic performed. Ultrasound probe was placed per rectum with adequate lubrication. Ultrasound probe stabilized on a prostate stepper with attached grid. Ultrasound placement was made with external grid calibration for height and prostate diameter in both the transverse and longitudinal planes. Grid A-C covering right prostate and c-F covering left prostate. Numbers 1.0-2.5 covering posterior prostate and 2.5-4.0 covering anterior prostate. [employer] software and hardware platform was used for Ultrasound image acquisition, manual image registration and Ultrasound model creation, and MRI virtual target overlay. Once grid calibration was confirmed prostate ultrasound data acquisition was performed in the stepwise transverse fashion. US prostate image registration was performed using transverse and sagittal generated images. Model boundaries were marked based off acquired images. A three dimensional ultrasound model was created using [employer] software. The model was reviewed against acquired US images. The planned lesion ice ball target, based on prior acquisition of MRI imaging, was overlaid on the ultrasound images and targets confirmed through ultrasound review. Adjustments were then made between real time and projected model targeting locations. Based on pre-planning evaluation the prostate target cryotherapy areas were identified as follows - Right - measuring approximately 1.7 x 0.9 cm Cryotherapy area coverage was achieved with - 2 [employer] scientific cryotherapy ice pill The first cryotherapy needle was advanced under real time ultrasound at the target coordinates so the tip was just visible at the base of the prostate/bladder interface. Images were reviewed to ensure adequate clearance was obtained between both the urethra, with a bradley catheter, and the location of the external urethral sphincter. Once in place the needle was quick frozen to stick the prostate to the needle. This allowed placement of the temperature monitoring probe that was placed 5mm into apical prostate tissue near the sphincter for intraprocedural monitoring. Cryotherapy cycling was performed as follows - Initial cryotherapy -140C for 8 mins - Active thaw 3 min followed by passive thaw 6 min - Second cryotherapy cycle -140 for 6 mins Ice ball was monitored in real time through US imaging. Clear demarcation boundary was seen with an appropriate penumbra covering the target lesion area. At the completion of the second cryotherapy cycle active thaw was performed for 3 min. The probe was then rotated and carefully withdrawn. Temperature probe was removed. He tolerated the procedure well. Was transferred to stable condition in the PACU. Printed instructions regarding antibiotic use and common side effects such as low-grade temperature, potential infection and bleeding were given CPT codes 38831 - Bradley catheter placement 27419: Transrectal ultrasound; this is a diagnostic test for evaluation of the prostate and surrounding structures, looking for abnormalities or suspicious areas worrisome for cancer 29392: 3D rendering with interpretation and reporting of computed tomography (CT), MRI, ultrasound, or other tomographic modality with image postprocessing under concurrent supervision; not requiring image postprocessing on an independent workstation - construction of 3D model with TRUS and ongoing refinement of model positioning during procedure 93887: Ultrasonic guidance for needle placement (eg, biopsy, aspiration, injection, localization device), imaging supervision and interpretation 06163 - Perineal prostate cryotherapy
[2025-07-10] MEDS: oxyCODONE HCl Immed Release 5 MG TABLET PO (12:05)
== END 2025-07-10 12:12 | disposition home or self-care (01) ==
PROVIDERS: PCP Internal Medicine; Visit Provider Urology
PROC: (CPT 55873; principal; 2025-07-10 09:40)
DX: C61 Malignant neoplasm of prostate (principal); N42.89 Other specified disorders of prostate; N40.0 Benign prostatic hyperplasia without lower urinary tract symptoms; N52.9 Male erectile dysfunction, unspecified; N48.6 Induration penis plastica; R97.20 Elevated prostate specific antigen [PSA]; Z79.899 Other long term (current) drug therapy; Z98.890 Other specified postprocedural states; Z56.0 Unemployment, unspecified
CPT/HCPCS: 55873; 51702; C2618; J1956; J2003; J2704; J3010

== ENCOUNTER → 2025-07-10 08:01 | Outpatient (BNV) | payer BC, SELFPAY | PROVIDERS: PCP Internal Medicine; Visit Provider Urology | DX: C61 Malignant neoplasm of prostate (principal) | CPT/HCPCS: 55873; 76376 ==

== ENCOUNTER 2025-10-06 06:00 | Outpatient (REF) | payer BC, SELFPAY ==
--- OUTSIDE RECORDS SUMMARY | 2025-10-06 06:03 | XMS_ITS | Data Portability ---
Author Organization [place] [facility] [place] Address [address] [place] [address] Care Team Providers Care Cardiovascular Physician Assistant Name Role Phone KEILY ZIMMER Primary Care Provider KEILY ZIMMER Referring Provider Assessment Encounter Date Assessment Date Assessment LastModified by Organization Details LastModified Time 02/03/2025 02/03/2025 Rishi is a 59-year-old male who presents today with worsening pain in the left hip after falling off an 18 foot roof. X-rays were reviewed together on the computer. There is nothing to explain his worsening symptoms. He had significant bruising in his hip at the time which is since resolved. He has had discomfort since, but has been having worsening symptoms. He has modified his activity since. We reviewed his x-rays together on the computer without obvious fracture. An MRI will be obtained due to the severity of his symptoms. He will follow-up in 2 weeks to review the findings and discuss options, sooner for any complications. He will avoid any heavy lifting or twisting activities. Patient was seen and evaluated by Bang Vo PA-C in indirect conjunction with Dr. Nicole. The provider agrees with the history, physical examination, recommended tests/diagnostic imaging, and treatment plan. [email or web address] Not available 02/03/2025 11:10:45 02/20/2025 02/20/2025 He is definitely improving. He has a resolving contusion and hematoma over the left hip. I reviewed the MRI with him. Expect this to slowly settle down with time. Discussed the alternative would be to send him to interventional radiology to see if it could be drained, at this point he has no interest in that. He is currently not manifesting any neurologic signs or compromise secondary to the small area of swelling. We decided on keeping follow-up open-ended for now. He will monitor the area of swelling and certainly if it does not resolve or increases in size he knows to come back for a recheck. Questions invited and answered at length. Greater than 20 minutes was spent with the encounter today, including face to face time with the patient, documentation, review of records/imaging if applicable, and coordination of care. PRIOR LIAM: Rishi is a 59-year-old male who presents today with worsening pain in the left hip after falling off an 18 foot roof. X-rays were reviewed together on the computer. There is nothing to explain his worsening symptoms. He had significant bruising in his hip at the time which is since resolved. He has had discomfort since, but has been having worsening symptoms. He has modified his activity since. We reviewed his x-rays together on the computer without obvious fracture. An MRI will be obtained due to the severity of his symptoms. He will follow-up in 2 weeks to review the findings and discuss options, sooner for any complications. He will avoid any heavy lifting or twisting activities. Not available 03/09/2025 11:33:24 Plan of Treatment Reminders Order Date Submit Date Provider Last Modified By Organization Details Last Modified Time Details Appointments None recorded. Lab None recorded. Referral None recorded. Procedures None recorded. Surgeries None recorded. Imaging MRI, hip, w/o contrast - 18 foot fall off roof 3 weeks ago. Worsening symptoms. Rule out occult fracture or other internal derangement 2024 025 [email or web address] Not available 5 09:59:17 XR, hip, unilateral, 2 or 3 view 2024 025 [email or web address] 21 [facility], [address], [place], [address], 5 08:43:35 Medication Orders None recorded. Patient TargetsNo targets recorded. Patient Instructions Encounter Date Encounter Id Patient Instructions Last Modified By Organization Details Last Modified Time 02/03/2025 [id number] Radiographs: 2 views of the Left hip were obtained in the [place] office on 02/03/2025. X-rays demonstrated normal bone mineralization. Femoral head sits well in the acetabulum. No significant degenerative changes. No evidence of acute injury or fracture. Impression: Normal Left hip Images interpreted by: Bang Vo PA-C [email or web address] Not available 02/03/2025 17:30:59 02/20/2025 [id number] Radiographs: 2 views of the Left hip were obtained in the [place] office on 02/03/2025. X-rays demonstrated normal bone mineralization. Femoral head sits well in the acetabulum. No significant degenerative changes. No evidence of acute injury or fracture. Impression: Normal Left hip Images interpreted by: Bang Vo PA-C Not available 02/19/2025 16:47:09 Reason for Referral None Reported. Results Created Date Observation Date Name Description Value Unit Range Abnormal Flag Note LastModifiedBy Organization Detail LastModifiedTime 02/14/20 25 02/04/2025 MRI, hip, w/o contr ast No observ ation record ed. [email or web address] Not Available 2024 09:59:21 Result Notes None recorded. Problems Name Problem SNOMED Code Status Onset Date Resolution Date Notes Provider Name and Address Organization Details Recorded Time Contusion of hip 19971376 Active [address], [place], [address] , [place] [facility] 5 11:08:07 Pain of hip region 73566942 Active [address], [place], [address] , [place] [facility] 5 16:47:07 Problem Notes None recorded. Medical Equipment None Reported. Medications Name Sig Start Date Stop Date Status Note LastModified by Organization Details LastModified Time hydrocodone 5 mg-acetamino phen 325 mg tablet TAKE 1 TABLET BY MOUTH EVERY 6 HOURS NEEDED FOR PAIN active Not Available Not Available No t Available sildenafil 100 mg tablet PLEASE SEE ATTACHED FOR DETAILED DIRECTIONS active Not Available Not Available N ot Available metoprolol succinate ER 25 mg tablet,exten ded release 24 hr TAKE 1 TABLET BY MOUTH EVERY DAY active Not Available Not Available No t Available diazepam 5 mg tablet TAKE 1 TABLET BY MOUTH THREE TIMES A DAY NEEDED active Not Available Not Available No t Available amoxicillin 875 mg-potassium clavulanate 125 mg tablet TAKE 1 TABLET BY MOUTH TWICE A DAY FOR 7 DAYS active Not Available Not Available No t Available tadalafil 5 mg tablet TAKE 1 TABLET BY MOUTH DAILY FOR SEXUAL ACTIVITY active Not Available Not Available No t Available vitamin E (dl, acetate) 450 mg (1,000 unit) capsule TAKE 1 CAPSULE BY MOUTH DAILY FOR 90 DAYS active Not Available Not Available Not Available Vitals Date Recorded Body height Body mass index (BMI) Body weight Provider Name and Address Organization Details Last Updated DateTime 02/03/2025 175.26 cm 22.9 kg/m2 80144.82 g Mele Rosas [place] - [facility] 02/03/2025 10:45:10 Date Recorded Body height Body mass index (BMI) Body weight Provider Name and Address Organization Details Last Updated DateTime 02/20/2025 175.26 cm 23 kg/m2 36757.41 g Pauline Glez [place] - [facility] 02/20/2025 13:53:55 Social History None recorded. Functional Status None recorded. Mental Status None recorded. Family History Nothing Reported. Medical History Condition Response Coronary Artery Disease N Gout N Hyperthyroidism N MRSA N Blood Transfusion N Emphysema N Hypothyroidism N Depression Y COPD N Pacemaker N Vascular Disease N Gastrointestinal Disease N Anxiety Disorder N Autoimmune disease N Arthritis N Cancer Y Stroke N High Cholesterol Y Neurologic Disorder N Liver Disease N Organ Transplant N Rheumatoid Arthritis N Arrhythmia N Fibromyalgia N Kidney Disease N Allergies/Hayfever N Adverse Reaction to Anesthesia N Thyroid Problems N Anemia N Brain Injury N Heart Attack ([place]) N Osteopenia N Diabetes N Bleeding Disorder N Seizures/Epilepsy N AIDS/HIV N Congestive Heart Failure (CHF) N Asthma N Amputation N Reflux/GERD N Sleep Apnea N Hepatitis N Aneurysm N Heart Disease N Pulmonary Embolism N Hypertension N Osteoporosis N Past Encounters Encounter ID Performer Location Encounter Start Date Encounter Closed Date Diagnosis/Indication Diagnosis SNOMED-CT Code Diagnosis ICD10 Code Diagnosis IMO Codes Diagnosis Note [id number] CAROL SUAZO [facility] [address] [place] [address] 02/03/2025 10:40:37 02/03/2025 11:06:11 Pain of hip region 73619812 M25.552 [id number] Contusion of hip 7649044 7 S70.02XA [id number] Angel Nicole MD [facility] [address] [place] [address] 02/20/2025 13:44:05 02/20/2025 14:06:54 Pain of hip region 17766434 M25.552 682713 Contusion of hip 3823010 7 S70.02XD [id number] Health Concerns Section Related Observation LastModified by Organization Detai ls LastModified Time None Recorded Concern Status LastModified by Organization Details LastModified Time None Recorded Advance Directives Directive None Recorded Payers Insurance Date Sequence Insurance Name Policy Number Policy [place] Covered Member ID [place] Member ID Guarantor Name 03/10/2025 1 [facility] ([place] [id number] Rishi Barnes [id number] Rishi Watkins Notes Date Note Type Note Provider Name and Address Organization Details Recorded Time 02/03/2025 text/html ROS as noted in the HPI Patient is a 59-year-old male who presents today with ongoing pain in his left hip. Symptoms started 3 weeks ago when he was cleaning off solar panels on his roof. Unfortunately he fell 18 feet. He admits he landed in 6 8 inches of snow which may have helped, but he had significant pain bruising and swelling. He was hoping symptoms would improve, but they seem to be getting worse. Symptoms are worse when he is walking or with periods of extended sitting. He denies any locking. Pain is diffuse of his hip and can radiate to his groin. BANG VO PA-C [address], [place], [address], [place] [facility] 02/03/2025 17:31:40 02/20/2025 text/html Patient returns to the office for reevaluation of his left hip pain. He states that driving is generally the most bothersome activity/position. He describes his pain between a 1 to a 3 on a 10 point scale. He characterizes it as aching and burning. At times it is radiating. He has not had physical therapy. Tylenol has provided some improvement. He did have an MRI and brings that in today for review. He still feels there is a little bit of swelling around the hip but much better than it was before. PRIOR LIAM:Patient is a 59-year-old male who presents today with ongoing pain in his left hip. Symptoms started 3 weeks ago when he was cleaning off solar panels on his roof. Unfortunately he fell 18 feet. He admits he landed in 6 8 inches of snow which may have helped, but he had significant pain bruising and swelling. He was hoping symptoms would improve, but they seem to be getting worse. Symptoms are worse when he is walking or with periods of extended sitting. He denies any locking. Pain is diffuse of his hip and can radiate to his groin. Angel Nicole MD [address], [place], [address], [place] [facility] 03/09/2025 11:33:33
[2025-10-06 08:51] LABS: Prostate Specific Antigen 16.84 ng/mL (<0.05-4.0)
== END 2025-10-06 06:01 | disposition home or self-care (01) ==
LOC: HO.LAB 06:00
PROVIDERS: PCP Internal Medicine; Visit Provider Urology
DX: Z12.5 Encounter for screening for malignant neoplasm of prostate (principal)
CPT/HCPCS: 36415; 84153

== ENCOUNTER 2025-10-11 13:39 | Outpatient (AMB) | payer BC, SELFPAY ==
--- NOTE | 2025-10-11 13:47 | A.OFFVIS_ITS ---
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 He has a patient of Dr. Meng. 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 DWI PI-RADS v2.1 score: 5 T2 PI-RADS v2.1 score: 5 DCE PI-RADS v2.1 score: + Overall PI-RADS v2.1 score: 5 Capsular contact: yes Extracapsular extension: None Seminal vesicle invasion: None Neurovascular bundle involvement: None Prolaris Results 02/13 Prolaris Score 2.6 Candidate for Active Surveillance 10 yr DSM 3.1% Lies on favorable side of grade 2 NCCN risk curve PSA 12 Volume 30cc pT1c Histologic type: Adenocarcinoma, acinar type Desmond score: 3+4=7 (E 2.5), 3+3=6 (b 2.0) Number cores positive: 2 Total number of cores: 14 % of tissue involved: Less than 5% of all tissue examined Periprostatic fat inv.: Not identified Seminal vesicle inv.: Not identified Perineural inv.: Not identified LVI: Not identified Imaging - 01/16 MRI indeterminate PI-RADS 3 lesion in the anterior transition zone spanning the mid gland to base; 30cc prostate Elevated PSA Prior PSA 12/12 5.4, 06/11 7.2, 12/13 8.0, 06/12 7.6, 12/14 6.9 9%, 06/13 11, 05/15 13, 11/14 12.1 Prior prostate biopsy May 2020 prostate biopsy negative - BPH with chronic inflammation Repeat biopsy - 11/13 BPH with small area [facility] Imaging - 01/13 MRI no suspicious lesions 30 g prostate Imaging- 01/16 MRI indeterminate PI-RADS 3 lesion in the anterior transition zone spanning the mid gland to base; 28cc prostate. [facility] Medical History Hemorrhoids Anemia Palmar nodule Colon cancer screening Internal and external bleeding hemorrhoids Surgical History History of surgery Social History Are you a primary customer care representative to a significant other at home: No Do you presently have visiting nurse or other home services: No Patient Tobacco Use Status: Current everyday Tobacco user Tobacco use type: Cigarette Cigarettes Per Day: 0.5 Current occupational status: unemployed Review of Systems Const Denies chills and Denies fever(s) Card Reports no additional complaints and Denies syncope Resp Denies cough GI Denies abdominal pain and Denies heartburn Reports as per HPI and Denies change in libido Neuro Denies syncope Psych Denies change in libido Endo Denies change in libido Physical Exam Const General: cooperative, healthy appearing, comfortable and no acute distress Orientation/consciousness: patient oriented x3 HEENT Face and sinus: Yes normal facial exam Mouth: moist mucous membranes Neck Neck: Yes normal visual inspection, Yes full ROM and Yes trachea midline Chest Chest palpation & inspection: normal inspection of the chest Resp Effort & Inspection: normal respiratory effort, able to speak in complete sentences and no respiratory distress GI Inspection: Yes normal to inspection Back/Spine/Pelvis Cervical Spine: normal cervical lordosis Thoracic/Lumbar Spine: thoracic and lumbar spine normal to inspection Skin General skin exam: no rashes or lesions noted Neuro General: patient oriented x3, gait normal, tone normal and moves all extremities Extrem General: Yes normal to inspection and Yes capillary refill normal Office Procedures Post Void Residual Post Residual Void Post Void Residual (PVR): 0 [id number] Void Residual by ultrasound Results AMB Urinalysis, Automated UA Leukoctes 0 Lizzie/uL Last Edit by Melissa Major A on 10/11/25 13:59 UA Nitrite Negative Last Edit by Melissa Mjaor, A on 10/11/25 13:59 UA Urobilinogen 0.2 mg/dL Last Edit by Melissa Major A on 10/11/25 13:5 9 UA Protein 0 mg/dL Last Edit by Melissa Major A on 10/11/25 13:59 UA pH 6.0 Last Edit by Melissa Major, A on 10/11/25 13:59 UA Blood 200 Eze/uL Last Edit by Melissa Major [facility] on 10/11/25 13:59 UA Specific Ryder 1.025 Last Edit by Melissa Major, A on 10/11/25 13: 59 UA Ketone Negative Last Edit by Melissa Major, A on 10/11/25 13:59 UA Bilirubin 0 mg/dL Last Edit by Melissa Major A on 10/11/25 13:59 UA Glucose 0 mg/dL Last Edit by Melissa Major, A on 10/11/25 13:59 Results Reviewed Results Reviewed: Laboratory Last Values Urine pH (Auto) 6.0 10/11/25 13:58 Specific Ryder (Auto) 1.025 10/11/25 13:58 Urine Protein (Auto) 0 mg/dL 10/11/25 13:58 Glucose (UA)(Auto) 0 mg/dL 10/11/25 13:58 Urine Ketones (Auto) Negative 10/11/25 13:58 Urine Blood (Auto) 200 Eze/uL 10/11/25 13:58 Urine Nitrite (Auto) Negative 10/11/25 13:58 Urine Bilirubin (Auto) 0 mg/dL 10/11/25 13:58 Urine Urobilinogen (Auto) 0.2 mg/dL 10/11/25 13:58 Leukocyte Esterase (Auto) 0 Lizzie/uL 10/11/25 13:58 Assessment & Plan Assessment & Plan (1) Prostate cancer: Code(s): C61 - Malignant neoplasm of prostate Category: Medical (2) Erectile dysfunction due to arterial insufficiency: Code(s): N52.01 - Erectile dysfunction due to arterial insufficiency Category: Medical Plan: .E Plan Increase tadalafil dose Orders: Orders Prostate Specific Antigen 3 Months C61 - Malignant neoplasm of prostate AMB Post Void Residual by ultrasound Today N13.8 - Other obstructive and reflux uropathy, N40.1 - Benign prostatic hyperplasia with lower urinary tract symptoms AMB Urinalysis Automated Today Z13.9 - Encounter for screening, unspecified Medications: Changed From tadalafil BIN N Group [facility] DR33 [id number] 5 mg PO DAILY 90 days 90 tabs 1RF sexual activity N32.0 - Bladder- neck obstruction, N52.01 - Erectile dysfunction due to arterial insufficiency To tadalafil email - .FiscalNote 10 mg PO DAILY 90 tabs 1RF sexual activity 90 days N32.0 - Bladder-neck obstruction, N52.01 - Erectile dysfunction due to arterial insufficiency Patient Instructions: This note is constructed using voice recognition software. While every effort has been made to ensure accuracy director targeted marketing errors may have been included. Imaging studies, laboratory and physical exam results were discussed and reviewed in detail. No major barriers to patient understanding were identified. An opportunity to ask questions regarding the treatment plan was provided. All questions were answered. The patient expressed understanding and agreement with the above treatment plan. The patient is aware they should contact our office by phone for worsening of their current condition or the appearance of new urologic symptoms. Compliance is encouraged with any medications and followup testing that is ordered. It is a privilege to participate in the urologic care of your patient. If you have any questions or concerns regarding treatment for the above conditions, or other urologic issues, please do not hesitate to contact me. The office telephone contact is [phone]. Sincerely, Dr Fredrick Daly MD, [facility] - Urology Compassionate Specialist Care for the Genitourinary System Coding Level of Care Code Est Pt Level 4 (65235) Diagnoses Prostate cancer C61 Erectile dysfunction due to arterial insufficiency N52.01 CPT Codes Post Residual Void - PVR CPT Code: 14328-[id number] Void Residual by ultrasound ([id number])
--- OUTSIDE RECORDS SUMMARY | 2025-10-12 01:48 | XMS_ITS | Data Portability ---
Author Organization [place] [facility] [place] Address [address] [place] [address] Care Team Providers Care Inside Account Representative Name Role Phone KEILY ZIMMER Primary Care Provider KEILY ZIMMER Referring Provider [phone] Assessment Encounter Date Assessment Date Assessment LastModified [...] examination, recommended tests/diagnostic imaging, and treatment plan. [email or web address] Not available 02/03/2025 11:10:45 02/20/2025 02/20/2025 He [...] view 2024 025 [email or web address] 21 [facility], [address], [address], [place], [address], 5 08:43:35 Medication Orders None recorded. Patient TargetsNo targets recorded. Patient Instructions Encounter Date Encounter Id Patient Instructions Last Modified By Organization Details Last Modified Time 02/03/2025 [id number] Radiographs: 2 views of the Left hip were obtained in the [place] office on 02/03/2025. X-rays demonstrated normal bone mineralization. Femoral head sits well in the acetabulum. No significant degenerative changes. No evidence of acute injury or fracture. Impression: Normal Left hip Images interpreted by: Bang Vo PA-C [email or web address] Not available 02/03/2025 17:30:59 02/20/2025 [id number] Radiographs: 2 views of the Left hip were obtained in the [place] office on 02/03/2025. X-rays demonstrated normal bone [...] Organization Details Recorded Time Contusion of hip 63480559 Active [address], [place], [address] , [place] [facility] 5 11:08:07 Pain of hip region 28820315 Active [address], [place], [address] , [place] [facility] 5 16:47:07 Problem Notes None recorded. [...] Updated DateTime 02/03/2025 175.26 cm 22.9 kg/m2 19915.82 g Mele Rosas [place] - [facility] 02/03/2025 10:45:10 Date Recorded Body height Body mass index (BMI) Body weight Provider Name and Address Organization Details Last Updated DateTime 02/20/2025 175.26 cm 23 kg/m2 41010.41 g Pauline Glez [place] [facility] 02/20/2025 13:53:55 Social History None recorded. Functional Status None recorded. Mental Status None recorded. Family History Nothing Reported. Medical History Condition Response Coronary Artery Disease N Gout N Hyperthyroidism N Blood Transfusion N MRSA N Emphysema N Depression Y COPD N Hypothyroidism N Pacemaker N Vascular Disease N Gastrointestinal Disease N Anxiety Disorder N Autoimmune disease N Arthritis N Cancer Y Stroke N High Cholesterol Y Neurologic Disorder N Liver Disease N Organ Transplant N Arrhythmia N Rheumatoid Arthritis N Fibromyalgia N Kidney Disease N Allergies/Hayfever N Adverse Reaction to Anesthesia N Thyroid Problems N Anemia N Brain Injury N Heart Attack ([place]) N Osteopenia N Diabetes N Bleeding Disorder [...] ICD10 Code Diagnosis IMO Codes Diagnosis Note [id number] CAROL SUAZO [facility] [address] [place] [address] 02/03/2025 10:40:37 02/03/2025 11:06:11 Pain of hip region 62052823 M25.552 238130 Contusion of hip 1441412 7 S70.02XA [id number] Angel Nicole MD [facility] [address] [place] [address] 02/20/2025 13:44:05 02/20/2025 14:06:54 Pain of hip region 72473912 M25.552 978839 Contusion of hip 5977853 7 S70.02XD 636019 Health Concerns Section Related Observation LastModified by Organization Detai ls LastModified Time None Recorded Concern Status LastModified by Organization Details LastModified Time None Recorded Advance Directives Directive None Recorded Payers Insurance Date Sequence Insurance Name Policy Number Policy [place] Covered Member ID [place] Member ID Guarantor Name 03/10/2025 1 [facility] [id number] Rishi Barnes [id number] Rishi Watkins Notes Date Note Type [...] BANG VO PA-C [address], [place], [address], [place] [facility], [facility] 02/03/2025 17:31:40 02/20/2025 text/html Patient returns [...] Angel Nicole MD [address], [place], [address], [place] [facility] 03/09/2025 11:33:33
== END 2025-10-11 14:10 | disposition home or self-care (01) ==
LOC: HO.HUSH 13:40
PROVIDERS: PCP Internal Medicine; Visit Provider Urology
DX: C61 Malignant neoplasm of prostate (principal); N52.01 Erectile dysfunction due to arterial insufficiency; Z13.9 Encounter for screening, unspecified
CPT/HCPCS: 99214

== ENCOUNTER → 2025-10-11 13:39 | Outpatient (BNVA) | payer BC, SELFPAY | PROVIDERS: PCP Internal Medicine; Visit Provider Urology | DX: C61 Malignant neoplasm of prostate (principal); N40.1 Benign prostatic hyperplasia with lower urinary tract symptoms; N13.8 Other obstructive and reflux uropathy; Z13.9 Encounter for screening, unspecified; N52.01 Erectile dysfunction due to arterial insufficiency; Z98.890 Other specified postprocedural states | CPT/HCPCS: 51798; 81003 ==